=== PATIENT | female | born 1940 | race Caucasian/White ===

== ENCOUNTER → 2016-06-18 | Outpatient (CLI) | payer OTHER ==
[~2016-06-18] MED LIST: CEPH500C2 PO; CYAN100020 PO; CYAN1CAP3 PO; CZR25 PO; HYDR-5688 PO; IBUP-1428 PO; INSDGIPEN SQ; KFL500 PO; LEVO100T7 PO; LEVO50TA6 PO; LOSA1TAB PO; LPT/40 PO; MRLP17X PO; NVLGI SC; NVLGI/PEN SC; PANT40TA PO; PHEN-775 PO; PHEN-939 PO
[2016-06-18 12:01] LABS: ESTIMATED AVERAGE GLUCOSE 171 mg/dl; HA1C FLAG Normal (Normal)
[2016-06-18 12:06] LABS: BLOOD UREA NITROGEN 34 mg/dl (7-18); BUN/CREATININE RATIO 25.8 (10-20); CALCIUM 8.7 mg/dl (8.5-10.1); CARBON DIOXIDE 26 mmol/L (21-32); CHLORIDE 107 mmol/L (98-107); GLUCOSE 66 mg/dl (70-99); POTASSIUM 4.1 mmol/L (3.5-5.1); SODIUM 143 mmol/L (136-145)
[2016-06-18 12:16] LABS: ALB/GLOB RATIO 1.2 (0.9-2); ALKALINE PHOSPHATASE 64 U/L (45-117); ALT/SGPT 38 U/L (12-78); AST/SGOT 28 U/L (15-37); CHOLESTEROL 125 mg/dl (0-200); CHOLESTEROL/HDL RATIO 2.4; HDL CHOLESTEROL 53 mg/dl; LDL CHOLESTEROL CALCULATED 41 mg/dl; THYROID STIMULATING HORMONE 0.812 uIu/ml (0.300-4.500); TRIGLYCERIDES 156 mg/dl (0-150); VERY LOW DENSITY LIPOPROT CALC 31 mg/dl
== END | disposition home or self-care (01) ==
LOC: C.LAB1850 10:15
PROVIDERS: ATTEND Family Medicine
DX: E11.9 Type 2 diabetes mellitus without complications (principal)

== ENCOUNTER → 2016-12-15 | Outpatient (CLI) | payer OTHER ==
[2016-12-15 09:35] LABS: HEMATOCRIT 41.2 % (37-47); MEAN CELL VOLUME 100.5 fL (80-100); MEAN CORPUSCULAR HEMOGLOBIN 33.4 pg (25-34); MEAN CORPUSCULAR HGB CONC 33.3 g/dl (32-36); MEAN PLATELET VOLUME 12.6 fL (7.4-10.4); PLATELET COUNT 173 K/uL (130-400); WHITE BLOOD COUNT 5.99 K/uL (4.8-10.8)
[2016-12-15 09:53] LABS: ALT/SGPT 35 U/L (12-78); AST/SGOT 22 U/L (15-37); BLOOD UREA NITROGEN 22 mg/dl (7-18); BUN/CREATININE RATIO 15.9 (10-20); CALCIUM 8.8 mg/dl (8.5-10.1); CARBON DIOXIDE 30 mmol/L (21-32); CHLORIDE 106 mmol/L (98-107); GLUCOSE 104 mg/dl (70-99); POTASSIUM 4.3 mmol/L (3.5-5.1); SODIUM 140 mmol/L (136-145)
[2016-12-15 10:04] LABS: ALB/GLOB RATIO 1.2 (0.9-2); ALKALINE PHOSPHATASE 74 U/L (45-117); ESTIMATED AVERAGE GLUCOSE 146 mg/dl; HA1C FLAG Normal (Normal)
== END | disposition home or self-care (01) ==
LOC: C.LAB1850 08:18
PROVIDERS: ATTEND Family Medicine
DX: E11.9 Type 2 diabetes mellitus without complications (principal); I12.9 Hypertensive chronic kidney disease with stage 1 through stage 4 chronic kidney disease, or unspecified chronic kidney disease; E78.5 Hyperlipidemia, unspecified; N18.3 Chronic kidney disease, stage 3 (moderate)

== ENCOUNTER 2016-12-23 10:06 | Inpatient (IN) | payer OTHER ==
[~2016-12-23] VITALS: Ht 157.5 cm; Wt 90.0 kg
[~2016-12-23 10:06] MED LIST changes: -CEPH500C2 PO; -CYAN100020 PO; -CYAN1CAP3 PO; -HYDR-5688 PO; -KFL500 PO; -LEVO50TA6 PO; -LOSA1TAB PO; -MRLP17X PO; -NVLGI/PEN SC; -PHEN-775 PO; -PHEN-939 PO
[2016-12-23] MEDS ORDERED: NVLGI/PEN SC (10:42)
[2016-12-23] MEDS ORDERED: LOSA1TAB PO (10:42)
[2016-12-23] MEDS ORDERED: LEVO50TA6 PO (10:42)
[2016-12-23 11:00] LABS: COMPLETE YES; HEMATOCRIT 41.3 % (37-47); IG% 0.3 %; LYMPH % 4.4 %; LYMPH ABS # 0.67 K/uL (1.2-3.4); MEAN CELL VOLUME 100.5 fL (80-100); MEAN CORPUSCULAR HEMOGLOBIN 34.1 pg (25-34); MEAN CORPUSCULAR HGB CONC 33.9 g/dl (32-36); MEAN PLATELET VOLUME 12.7 fL (7.4-10.4); MONO % 3.9 %; NEUT % 91.4 %; PLATELET COUNT 155 K/uL (130-400); RED BLOOD COUNT 4.11 M/uL (4.2-5.4)
[2016-12-23 11:10] LABS: BUN/CREATININE RATIO 22.6 (10-20); CALCIUM 8.6 mg/dl (8.5-10.1); CREATININE 1.6 mg/dl (0.60-1.20); POTASSIUM 4.6 mmol/L (3.5-5.1)
[2016-12-23 11:13] LABS: ALB/GLOB RATIO 1.2 (0.9-2)
[2016-12-23] MEDS ORDERED: SODIUM CHLORIDE 0.9% 1000ML 1,000 ML IV STA (11:29)
[2016-12-23 11:54] LABS: PARTIAL THROMBOPLASTIN RATIO 1.4; PROTHROMBIN TIME (PATIENT) 10.7 SECONDS (9.0-12.0)
[2016-12-23 12:03] LABS: MAGNESIUM 1.9 mg/dl (1.8-2.4)
[2016-12-23 12:19] LABS: URINE APPEARANCE CLOUDY (CLEAR); URINE BILIRUBIN NEG (NEG); URINE COLOR YELLOW; URINE NITRITE POS (NEG); URINE PH 7.5 (4.5-7.5); URINE SPECIFIC GRAVITY 1.014 (1.000-1.030); UROBILINOGEN NEG (NEG); ZZUR CULT IF INDIC CLEAN CATCH YES
--- NOTE | 2016-12-23 12:20 | DIAGNOSTIC IMAGING REPORT ---
CHEST ONE VIEW PORTABLE CLINICAL HISTORY: 76 years-old Female presenting with cough, productive. TECHNIQUE: Portable upright AP view of the chest was obtained. COMPARISON: 02/15/2013. FINDINGS: Cardiomediastinal silhouette normal. Previously questioned left basilar opacity is no longer apparent. Lungs and pleural spaces clear. Osseous structures normal. Upper abdomen normal. IMPRESSION: 1. No acute cardiopulmonary disease. Electronically signed by: Baron Carcamo M.D. 12/23/2016 12:18 PM Dictated Date/Time: 12/23/2016 12:18 PM
[2016-12-23 12:31] LABS: MANUAL MICROSCOPIC REQUIRED? NO; REVIEW REQ? YES
[2016-12-23 12:50] LABS: SULFASALICYLIC ACID POS (NEG)
--- NOTE | 2016-12-23 12:54 | DIAGNOSTIC IMAGING REPORT ---
ABD/PELVIS NO IV OR ORAL CONT CLINICAL HISTORY: 76 years-old Female presenting with epigastric abd pain, urinary sxs, nausea. TECHNIQUE: Multidetector CT of the abdomen and pelvis was performed without the use of intravenous contrast. IV contrast: None. A dose lowering technique was used consistent with the principles of ALARA (as low as reasonably achievable). COMPARISON: None. CT DOSE (mGy.cm): The estimated cumulative dose is 1010.29 mGycm. FINDINGS: Tie Loader topogram: Lumbar fusion hardware noted. Lung bases: Mild multichamber enlargement of the heart. Aortic valve and coronary artery calcification. Lung bases clear. No pericardial or pleural effusion. Liver: Normal morphology. Hepatic steatosis by density. Biliary: No gross biliary ductal dilatation allowing for noncontrast technique. Normal gallbladder. Pancreas: Moderate parenchymal atrophy. Spleen: Normal. Adrenal glands: Normal. Kidneys and ureters: Nonspecific mild perinephric fat stranding. Mild prominence of the right renal collecting system and right ureter suggests mild hydroureteronephrosis. No urothelial thickening noted along the course of the right ureter. Obstructing calculus in the distal right ureter immediately proximal to the vesicoureteral junction measuring 5 mm. No left hydronephrosis. Left ureter normal. Bladder: Incompletely evaluated secondary to underdistention. Pelvic organs: Uterus and ovaries normal. Bowel: Limited diverticulosis in the proximal sigmoid colon. Normal appendix. No bowel obstruction. Peritoneal cavity: No free fluid or intraperitoneal gas. Vasculature: Atherosclerosis of the normal caliber abdominal aorta. Lymph nodes: No gross lymphadenopathy allowing for noncontrast technique. Abdominal wall: Small fat-containing umbilical hernia. Minimal infiltration overlying skin thickening along the right lower quadrant. Musculoskeletal: Calcification along the proximal hamstring tendons could suggest old injury. Degenerative changes of the sacroiliac joints. Posterior lumbar fusion hardware noted. The right S1 screw violates the anterior cortex without significant effect. Scoliosis. IMPRESSION: 1. Obstructing 5 mm calculus in the distal right ureter with mild right hydroureteronephrosis. No other renal calculi. 2. Hepatic steatosis. Electronically signed by: Baron Carcamo M.D. 12/23/2016 12:53 PM Dictated Date/Time: 12/23/2016 12:46 PM
[2016-12-23] MEDS ORDERED: CEFTRIAXONE SOD INJ 1 GM ADDVIAL IV STA (13:26)
--- NOTE | 2016-12-23 14:27 | EMERGENCY ROOM VISIT NOTE ---
History First contact with patient: 11:15 Chief Complaint: ILLNESS Stated Complaint: ILLNESS History of Present Illness The patient is a 76 year old female who presents to the Emergency Room with complaints of "not feeling well." The patient reports that she feels she has a urinary tract infection. She has had dysuria and increased frequency of urination for the past 2 days. She reports this feels like previous urinary tract infections she has had. She also reports a cough which has been productive of a yellowish mucus. She has had intermittent epigastric abdominal pain and nausea. She denies any vomiting. Her neighbor presents with the patient and reports that she was slightly disoriented this morning and needed help buttoning her shirt and getting down the stairs, which is unusual for the patient. The patient denies any confusion. She denies any fevers/chills, chest pain, shortness of breath or changes in bowel movements. She is a type II diabetic and checked her blood sugar this morning due to being "shaky," but states it was normal at that time. Review of Systems A complete 10 point review of systems was reviewed with the patient with pertinent positives and negatives as per history of present illness. All else were negative. Past Medical/Surgical History Medical Problems: (1) CHRONIC KIDNEY DISEASE, UNSPECIFIED (2) CORONARY ATHEROSCLEROSIS OF [place] CORONARY VESSEL (3) DIAB AUGIE WO COMPL, TYPE I [JUVENILE TYPE], NOT UNCNTRLD (4) HYPERLIPIDEMIA NEC/NOS (5) HYPERTENSION NOS (6) PURE HYPERCHOLESTEROLEM (7) SPINAL STENOSIS-LUMBAR (8) uti and ureter obstructive stone Social History Smoking Status: Former Smoker Drug Use: none Marital Status: Occupation Status: retired Current/Historical Medications Scheduled Atorvastatin (Lipitor), 40 MG PO DAILY Insulin Aspart (Novolog Flexpen), 1 DOSE SC TID Insulin Glargine (Lantus Solostar), 35 UNITS SQ QPM Levothyroxine Sodium (Levothyroxine Sodium), 1 TAB PO DAILY Losartan Potassium (Cozaar), 25 MG PO DAILY Physical Exam Vital Signs Date Time Temp Pulse Resp B/P (MAP) Pulse Ox O2 Delivery O2 Flow Rate FiO2 12/23/16 14:30 82 24 118/50 12/23/16 14:20 87 23 94 12/23/16 14:15 68 22 95 12/23/16 14:10 83 24 91 12/23/16 14:05 87 20 95 12/23/16 14:00 68 22 95 12/23/16 13:55 65 22 85 12/23/16 13:50 73 29 94 12/23/16 13:50 79 12/23/16 13:49 81/56 12/23/16 13:47 97/56 12/23/16 12:31 119/66 12/23/16 12:25 82 23 92 12/23/16 12:20 75 28 92 12/23/16 12:15 75 29 12/23/16 12:10 73 30 93 12/23/16 11:55 85 19 12/23/16 11:50 76 30 94 12/23/16 11:48 36.7 12/23/16 11:45 83 24 12/23/16 11:42 82 20 119/66 97 Room Air 12/23/16 11:40 76 20 95 12/23/16 11:35 84 17 12/23/16 11:30 80 25 12/23/16 10:24 79 12/23/16 10:14 81 16 131/56 94 Room Air Physical Exam VITALS: Vitals are noted on the nurse's note and reviewed by myself. Vital signs stable. GENERAL: This is a 76-year-old female, in no acute distress, nondiaphoretic, well-developed well-nourished. SKIN: The skin was without rashes. EARS: External auditory canals clear, tympanic membranes pearly duran without erythema or effusion bilaterally. EYES: Pupils equal round and reactive to light and accommodation. MOUTH: Mucous membranes slightly dry. NECK: Supple without nuchal rigidity. HEART: Regular rate and rhythm without murmurs gallops or rubs. LUNGS: Clear to auscultation bilaterally without wheezes, rales or rhonchi. ABDOMEN: Positive bowel sounds x 4. Mild epigastric tenderness. NEURO: Patient was alert and oriented to person place and time. Medical Decision & Procedures ER Provider Diagnostic Interpretation: CHEST ONE VIEW PORTABLE FINDINGS: Cardiomediastinal silhouette normal. Previously questioned left basilar opacity is no longer apparent. Lungs and pleural spaces clear. Osseous structures normal. Upper abdomen normal. IMPRESSION: 1. No acute cardiopulmonary disease. ABD/PELVIS NO IV OR ORAL CONT IMPRESSION: 1. Obstructing 5 mm calculus in the distal right ureter with mild right hydroureteronephrosis. No other renal calculi. 2. Hepatic steatosis. Laboratory Results 12/23/16 10:36 Red Blood Count 4.11, Mean Corpuscular Volume 100.5, Mean Corpuscular Hemoglobin 34.1, Mean Corpuscular Hemoglobin Concent 33.9, Mean Platelet Volume 12.7, Neutrophils (%) (Auto) 91.4, Lymphocytes (%) (Auto) 4.4, Monocytes (%) ( Auto) 3.9, Eosinophils (%) (Auto) 0.0, Basophils (%) (Auto) 0.0, Neutrophils # ( Auto) 13.99, Lymphocytes # (Auto) 0.67, Monocytes # (Auto) 0.60, Eosinophils # ( Auto) 0.00, Basophils # (Auto) 0.00 12/23/16 10:36 Test 12/23/16 10:36 12/23/16 12:00 12/23/16 12:13 White Blood Count 15.30 K/uL (4.8-10.8) Red Blood Count 4.11 M/uL (4.2-5.4) Hemoglobin 14.0 g/dL (12.0-16.0) Hematocrit 41.3 % (37-47) Mean Corpuscular Volume 100.5 fL (80-100) Mean Corpuscular Hemoglobin 34.1 pg (25-34) Mean Corpuscular Hemoglobin Concent 33.9 g/dl (32-36) Platelet Count 155 K/uL (130-400) Mean Platelet Volume 12.7 fL (7.4-10.4) Neutrophils (%) (Auto) 91.4 % Lymphocytes (%) (Auto) 4.4 % Monocytes (%) (Auto) 3.9 % Eosinophils (%) (Auto) 0.0 % Basophils (%) (Auto) 0.0 % Neutrophils # (Auto) 13.99 K/uL (1.4-6.5) Lymphocytes # (Auto) 0.67 K/uL (1.2-3.4) Monocytes # (Auto) 0.60 K/uL (0.11-0.59) Eosinophils # (Auto) 0.00 K/uL (0-0.5) Basophils # (Auto) 0.00 K/uL (0-0.2) RDW Standard Deviation 45.4 fL (36.4-46.3) RDW Coefficient of Variation 12.4 % (11.5-14.5) Immature Granulocyte % (Auto) 0.3 % Immature Granulocyte # (Auto) 0.04 K/uL (0.00-0.02) Prothrombin Time 10.7 SECONDS (9.0-12.0) Prothromb Time International Ratio 1.0 (0.9-1.1) Activated Partial Thromboplast Time 35.7 SECONDS (21.0-31.0) Partial Thromboplastin Ratio 1.4 Anion Gap 5.0 mmol/L (3-11) Est Creatinine Clear Calc Drug Dose 31.2 ml/min Estimated GFR () 35.9 Estimated GFR (Non- 31.0 BUN/Creatinine Ratio 22.6 (10-20) Calcium Level 8.6 mg/dl (8.5-10.1) Magnesium Level 1.9 mg/dl (1.8-2.4) Total Bilirubin 1.2 mg/dl (0.2-1) Aspartate Amino Transf (AST/SGOT) 21 U/L (15-37) Alanine Aminotransferase (ALT/SGPT) 44 U/L (12-78) Alkaline Phosphatase 78 U/L (45-117) Troponin I < 0.015 ng/ml (0-0.045) Total Protein 6.8 gm/dl (6.4-8.2) Albumin 3.7 gm/dl (3.4-5.0) Globulin 3.1 gm/dl (2.5-4.0) Albumin/Globulin Ratio 1.2 (0.9-2) Lipase 86 U/L (73-393) Thyroid Stimulating Hormone (TSH) 0.816 uIu/ml (0.300-4.500) Urine Color YELLOW Urine Appearance CLOUDY (CLEAR) Urine pH 7.5 (4.5-7.5) Urine Specific [place] 1.014 (1.000-1.030) Urine Protein 2+ (NEG) Urine Glucose (UA) NEG (NEG) Urine Ketones NEG (NEG) Urine Occult Blood 2+ (NEG) Urine Nitrite POS (NEG) Urine Bilirubin NEG (NEG) Urine Urobilinogen NEG (NEG) Urine Leukocyte Esterase LARGE (NEG) Urine WBC (Auto) >30 /hpf (0-5) Urine RBC (Auto) 0-4 /hpf (0-4) Urine Hyaline Casts (Auto) 1-5 /lpf (0-5) Urine Epithelial Cells (Auto) 5-10 /lpf (0-5) Urine Bacteria (Auto) 2+ (NEG) Urine Yeast (Auto) (NONE PRSENT) Lactic Acid Level 1.1 mmol/L (0.4-2.0) Medications Administered Medications (Trade) Dose Ordered Sig/Mat Route Start Time Stop Time Status Last Admin Dose Admin Sodium Chloride 1,000 ml @ 999 mls/hr Q1H1M STAT IV 12/23/16 11:29 12/23/16 12:29 DC 12/23/16 11:40 999 MLS/HR Ceftriaxone Sodium (Rocephin Inj) 1 gm NOW STAT IV 12/23/16 13:26 12/23/16 13:27 DC 12/23/16 13:26 1 GM ED Course The patient was evaluated as above. Labs were drawn and IV access was obtained. Patient was medicated with 1 L normal saline solution. Patient was reevaluated and findings were discussed. She was given 1 g Rocephin. Case was discussed with Dr. Luis of urology. He recommended admission to medicine. Case was discussed with the [facility], Dr. Araujo. They agreed to evaluate the patient for admission. Medical Decision Differential diagnosis includes UTI, kidney stone, pneumonia, cholecystitis, sepsis, diverticulitis, among others. The patient is a 76-year-old female who presents today complaining of urinary symptoms, cough and vague abdominal discomfort. Labs revealed a leukocytosis of 15.3. Creatinine is elevated at 1.6 which appears to be the patient's baseline. Labs were otherwise fairly unremarkable. Urinalysis was suggestive of infection with positive nitrites, leukocyte esterase, greater than 30 white blood cells and 2+ bacteria. This was sent for culture. A CT of the abdomen and pelvis was performed due to the patient's abdominal discomfort and did show a 5 mm obstructing stone. Given the obstructive stone and UTI, the patient will be admitted for IV antibiotics. She was given a gram of Rocephin. Case was discussed with urology and patient was admitted to the [facility] service. The patient was independently evaluated by Dr. Escalera, ED attending physician, who agreed with my assessment and treatment plan. Medication Reconcilliation Current Medication List: was personally reviewed by me Blood Pressure Screening Patient's blood pressure: Normal blood pressure Impression Primary Impression: Ureteral calculus Additional Impression: Urinary tract infection Departure Information Referrals Catarina Chand DO (PCP) Patient Instructions My [facility] Problem Qualifiers
[2016-12-23] MEDS ORDERED: ONDANSETRON INJ 2 MG/ML 2 ML VIAL IV PRN (14:30)
[2016-12-23] MEDS ORDERED: MAGNESIUM HYDROXIDE SUSP 30 ML UDC PO PRN (14:30)
[2016-12-23] MEDS ORDERED: ALUMINUM/MAGNESIUM/SIMETH (MAALOX MAX) 30 ML UDC PO PRN (14:30)
[2016-12-23] MEDS ORDERED: ZOLPIDEM TARTRATE 5 MG TAB PO PRN (14:30)
[2016-12-23] MEDS ORDERED: ACETAMINOPHEN 325 MG TAB PO PRN (14:30)
[2016-12-23] MEDS ORDERED: PANTOprazole SOD 40 MG TAB PO STA (14:45)
--- NOTE | 2016-12-23 14:46 | History and Physical ---
History & Physical Date of Service Dec 23, 2016. History & Physical uti and ureter obstructive stone, [id number]
[2016-12-23] MEDS ORDERED: POLYETHYLENE (MIRALAX) 17 GM PACK PO PRN (15:00)
--- NOTE | 2016-12-23 15:03 | EMERGENCY ROOM VISIT NOTE ---
ED Visit Note First contact with patient: 11:15 The patient was seen and examined with Clare Felix PA-C. I agree with the history, physical and findings. Please see the note for disposition and details.
[2016-12-23 15:54] VITALS: BMI 36.3
[2016-12-23] MEDS ORDERED: GLUCOSE 10 TABS/TUBE PO PRN (16:00)
[2016-12-23] MEDS ORDERED: GLUCAGON FOR INJ 1 MG VIAL SQ PRN (16:00)
[2016-12-23] MEDS ORDERED: GLUCOSE 40% GEL 15 GM TUBE PO PRN (16:00)
[2016-12-23] MEDS ORDERED: DEXTROSE 50% 50 ML SYR IV PRN (16:00)
[2016-12-23] MEDS: INSULIN ASPART 100 UNITS/ML 3 ML PEN SC SCH ×2 (17:15→22:26)
[2016-12-23] MEDS: SODIUM CHLORIDE 0.9% 1000ML 1,000 ML IV SCH (18:57)
[2016-12-23 22:00] VITALS: BP 157/71; PULSE 66; TEMP 37; O2SAT 96
[2016-12-23] MEDS ORDERED: HYDROmorphone INJ 0.5 MG/0.5 ML SYR IV PRN (22:15)
[2016-12-23] MEDS: ENOXAPARIN 40 MG/0.4 ML SYR SQ SCH (22:20)
[2016-12-23] MEDS: INSULIN GLARGINE SOLOSTAR 100 UNITS/ML 3 ML PEN SQ SCH (22:26)
[2016-12-23 22:55] VITALS: BP 154/68; PULSE 85; TEMP 37.7; O2SAT 94
[2016-12-23] MEDS ORDERED: ACETAMINOPHEN IV 650 MG in EMPTY BAG 0 ML IV PRN (23:30)
[2016-12-23] MEDS ORDERED: SODIUM CHLORIDE 0.9% 500ML 500 ML IV ONE (23:30)
--- NOTE | 2016-12-23 23:38 | Progress Note ---
Progress Note Date of Service Dec 23, 2016. Progress Note Called by RN overnight due to patient having increased pain, less responsive than earlier in the day When seen she was alert, orientated to time, place, person. Having right sided CVA tenderness. HS 1+2, no murmurs, CTAB, Abdomen soft, tender over right lower quadrant without guarding or rebound tenderness, BS +ve. Assessment: Ongoing renal colic pain, intermittently it gets more severe and likely her alertness changes with her pain. Currently she appears back to her baseline. Need to make sure she is not becoming more septic however. Plan - repeat labs, CBC, BMP lactic acid - NSS bolus 500 MLS/HR stat - CXR due to hypoxia - NPO as I suspect she may need a stent come the morning. - will call urology emergently if patient starts to become septic. Vital Signs Q2H.
[2016-12-23 23:49] LABS: HEMATOCRIT 38.7 % (37-47); IG% 0.7 %; LYMPH ABS # 0.55 K/uL (1.2-3.4); MEAN CELL VOLUME 100.8 fL (80-100); MEAN CORPUSCULAR HEMOGLOBIN 32.8 pg (25-34); MEAN PLATELET VOLUME 12.2 fL (7.4-10.4); MONO % 2.6 %; NEUT % 92.7 %; PLATELET COUNT 134 K/uL (130-400); RED BLOOD COUNT 3.84 M/uL (4.2-5.4)
[2016-12-24] VITALS (13 sets, daily range): BP systolic 96–135; BP diastolic 51–71; PULSE 58–85; TEMP 36.6–37.1; O2SAT 95–98
[2016-12-24 00:16] LABS: BUN/CREATININE RATIO 20.3 (10-20); CALCIUM 7.7 mg/dl (8.5-10.1); CREATININE 1.7 mg/dl (0.60-1.20); POTASSIUM 4.5 mmol/L (3.5-5.1)
[2016-12-24 00:17] LABS: COMPLETE YES; MEAN CORPUSCULAR HGB CONC 32.6 g/dl (32-36)
[2016-12-24] MEDS: SODIUM CHLORIDE 0.9% 1000ML 1,000 ML IV SCH ×3 (01:44→18:59)
[2016-12-24] MEDS ORDERED: NURSING DECISION MEDICATION ORDER SCH (03:00)
[2016-12-24] MEDS: INSULIN ASPART 100 UNITS/ML 3 ML PEN SC SCH ×4 (05:37→20:39)
[2016-12-24] MEDS: LEVOTHYROXINE 50 MCG TAB PO SCH (05:37)
[2016-12-24 06:07] LABS: ESTIMATED AVERAGE GLUCOSE 160 mg/dl; HA1C FLAG Normal (Normal)
--- NOTE | 2016-12-24 06:35 | DIAGNOSTIC IMAGING REPORT ---
CHEST ONE VIEW PORTABLE CLINICAL HISTORY: Increased hypoxia. COMPARISON STUDY: Chest radiograph December 23, 2016 at 12:12 PM FINDINGS: Lung volumes are normal. No consolidation is identified. There is no pneumothorax or pleural effusion. The patient is rotated. Pulmonary vascularity is normal. Cardiomediastinal silhouette is unremarkable. IMPRESSION: No acute cardiopulmonary findings. Electronically signed by: Meek Encarnacion M.D. 12/24/2016 6:34 AM Dictated Date/Time: 12/24/2016 6:33 AM
[2016-12-24 07:09] LABS: MEAN CELL VOLUME 100.6 fL (80-100); MEAN CORPUSCULAR HEMOGLOBIN 33.9 pg (25-34); MEAN CORPUSCULAR HGB CONC 33.7 g/dl (32-36); MEAN PLATELET VOLUME 12.1 fL (7.4-10.4); PLATELET COUNT 124 K/uL (130-400); RED BLOOD COUNT 3.48 M/uL (4.2-5.4); WHITE BLOOD COUNT 21.53 K/uL (4.8-10.8)
[2016-12-24] MEDS ORDERED: SODIUM CHLORIDE 0.9% 500ML 500 ML IV STA (07:32)
[2016-12-24 07:33] LABS: BUN/CREATININE RATIO 22.1 (10-20); CREATININE 1.6 mg/dl (0.60-1.20); MAGNESIUM 1.9 mg/dl (1.8-2.4); POTASSIUM 4.7 mmol/L (3.5-5.1)
[2016-12-24 07:42] LABS: BASO ABS # 0.01 K/uL (0-0.2); COMPLETE YES; IG% 0.5 %; LYMPH % 6.4 %; LYMPH ABS # 1.37 K/uL (1.2-3.4); MONO % 8.1 %
--- NOTE | 2016-12-24 08:24 | Urology Consultation ---
History General Date of Service: Dec 24, 2016. Chief Complaint: Obs Stone, Sepsis Primary Care Physician: Catarina Chand, DO Pt seen a urologist before?: No HPI - Stones Location: right, ureter Pain: right flank, constant, intermittent Patient has: + nausea, + gross hematuria, + hydronephrosis Additional Comments: Severe pain. Considerable jump in WBC this am. Denies fever. + Chills and ill feeling Laboratory Labs were reviewed and are within normal limits unless listed below. Labs are available in the chart and at [facility] Problem List Medical Problems: (1) Ureteral calculus Status: Acute (2) Urinary tract infection Status: Acute Past History diabetes Family History No fam history of stones Social History Hx Tobacco Use In Past Year?: No (quit in approx 2004) Marital status: Housing status: lives with family Occupation status: retired Immunizations History of Influenza Vaccine: Unknown Influenza Vaccine Date: Jan 30, 2009 History of Tetanus Vaccine?: Unknown History of Pneumococcal: Yes Pneumococcal Date: Apr 01, 2008 History of Hepatitis B Vaccine: Unknown History of MDRO No Allergies Coded Allergies: Levofloxacin (Verified Allergy, Unknown, ?? LEVAQUIN PER DR LAI, 09/02/10 ) Medications Home Medications: Home Meds and Scripts Medications Dose Route/Sig Max Daily Dose Days Date Category Dose Instructions Levothyroxine Sodium 50 Mcg Tab 1 Tab PO DAILY 90 12/23/16 Reported Cozaar (Losartan Potassium) 25 Mg Tab 25 Mg PO DAILY 12/23/16 Reported Novolog Flexpen (Insulin Aspart) 100 Units/Ml Inj 1 Dose SC TID 12/23/16 Reported SLIDING SCALE Lantus Solostar (Insulin Glargine) 100 Unit/Ml Inj 35 Units SQ QPM 07/10/13 Reported Lipitor (Atorvastatin) 40 Mg Tab 40 Mg PO DAILY 06/13/13 Reported Inpatient Medications: Current Inpatient Medications Medications (Trade) Dose Ordered Sig/Mat Route Start Time Stop Time Status Last Admin Dose Admin Enoxaparin Sodium (Lovenox Inj) 40 mg Q24H SQ 12/23/16 21:00 01/22/17 20:59 12/23/16 22:20 40 MG Acetaminophen (Tylenol Tab) 650 mg Q4H PRN PO 12/23/16 14:30 01/22/17 14:29 Al Hydrox/Mg Hydrox/Simethicone (Maalox Max Susp) 15 ml Q4H PRN PO 12/23/16 14:30 01/22/17 14:29 Magnesium Hydroxide (Milk Of Magnesia Susp) 30 ml Q6H PRN PO 12/23/16 14:30 01/22/17 14:29 Polyethylene (Miralax Powder Packet) 17 gm DAILY PRN PO 12/23/16 15:00 01/22/17 14:59 Zolpidem Tartrate (Ambien Tab) 5 mg HSZ PRN PO 12/23/16 14:30 01/22/17 14:29 Ondansetron HCl (Zofran Inj) 4 mg Q6H PRN IV 12/23/16 14:30 01/22/17 14:29 12/23/16 22:17 4 MG Ceftriaxone Sodium 1 gm/ Dextrose 50 ml @ 100 mls/hr Q24H IV 12/24/16 14:00 01/03/17 13:59 Atorvastatin Calcium (Lipitor Tab) 40 mg DAILY PO 12/24/16 09:00 01/23/17 08:59 Insulin Glargine (Lantus Solostar Pen) 35 units QPM SQ 12/23/16 21:00 01/22/17 20:59 12/23/16 22:26 35 UNITS Levothyroxine Sodium (Synthroid Tab) 50 mcg DAILYBB PO 12/24/16 06:00 01/23/17 06:59 Sodium Chloride 1,000 ml @ 125 mls/hr Q8H IV 12/23/16 14:45 01/22/17 14:44 12/24/16 01:44 125 MLS/HR Pantoprazole Sodium (Protonix Tab) 40 mg QAM PO 12/24/16 09:00 01/23/17 08:59 Glucose (Glucose 40% Gel) 15-30 GRAMS 15 GRAMS... UD PRN PO 12/23/16 16:00 01/22/17 15:59 Glucose (Glucose Chew Tab) 4-8 Tablets 4 Tabl... UD PRN PO 12/23/16 16:00 01/22/17 15:59 Dextrose (Dextrose 50% 50ML Syringe) 25-50ML OF 50% DW IV FOR... UD PRN IV 12/23/16 16:00 01/22/17 15:59 Glucagon (Glucagon Inj) 1 mg UD PRN SQ 12/23/16 16:00 01/22/17 15:59 Hydromorphone HCl (Dilaudid Inj) 0.25 mg Q1H PRN IV 12/23/16 22:15 01/06/17 22:14 Acetaminophen 650 mg/Empty Bag 65 ml @ 260 mls/hr Q6H PRN IV 12/23/16 23:30 01/22/17 23:29 Insulin Aspart (novoLOG ASPART) SLIDING SCALE G... Q6 SC 12/24/16 06:00 01/23/17 05:59 Gentamicin Sulfate 160 mg/ Dextrose 104 ml @ 100 mls/hr TODAY@0900 IV 12/24/16 09:00 12/24/16 18:00 Review of Systems Review of Systems All Other Systems: Reviewed and Negative Additional Comments: See HPI for pert positive and negatives. All reviewed. Physical Exam Vital Signs: Vital Signs Past 12 Hours Date Time Temp Pulse Resp B/P (MAP) Pulse Ox O2 Delivery O2 Flow Rate FiO2 12/24/16 07:07 36.6 62 18 96/66 (76) 97 Room Air 12/24/16 05:00 36.7 67 16 103/59 (74) 97 Oxymask 2.0 12/24/16 03:07 36.6 69 18 107/71 (83) 97 Room Air 12/24/16 00:56 37.1 85 16 109/68 (82) 97 Oxymask 2.0 12/24/16 00:30 107/69 102/63 111/57 114/58 12/23/16 23:15 Mask 2.0 12/23/16 22:55 37.7 85 36 154/68 (96) 94 Mask 2.0 12/23/16 22:00 37.0 66 18 157/71 (99) 96 Room Air Physical Exam: General Appearance: WD/WN, no apparent distress Eyes: bilateral eyes normal inspection ENT: normal ENT inspection Neck: supple, no adenopathy Respiratory/Chest: no respiratory distress, no accessory muscle use Cardiovascular: regular rate, rhythm Gastrointestinal: Abdomen: normal abdomen Bladder: tender Renal: cva tenderness Extremities: normal range of motion, non-tender Neurologic/Psychiatric: silviculturist II-XII nml as tested, no motor/sensory deficits Skin: normal color, warm/dry Lymphatic: no adenopathy Assessment & Plan Assessment & Plan Imaging: CT Treatment Planned: cystoscopy w/ stent 1 Obst Right Distal Stone 2 [place] 3 UTI 4 Sepsis/SIRS Will plan for urgent stent placement after review and interpretation of CT findings and lab work. Discussed with patient who signed consent. Will go to OR for Stent, possible intervention. Monitor closely for sepsis progression and worsening issues.
[2016-12-24] MEDS ORDERED: DEXAMETHASONE SOD INJ 4 MG/ML VIAL ONE (08:26)
[2016-12-24] MEDS ORDERED: LIDOCAINE HCL 2% 2 ML VIAL (20MG/ML) ONE (08:26)
[2016-12-24] MEDS ORDERED: FENTANYL CITRATE INJ 50 MCG/1 ML 2 ML VIAL ONE (08:26)
[2016-12-24] MEDS ORDERED: PROPOFOL IV EMULSION 10 MG/ML 20 ML VIAL IV ONE (08:26)
[2016-12-24] MEDS ORDERED: MIDAZOLAM HCL 1 MG/ML 2ML VIAL ONE (08:26)
[2016-12-24] MEDS ORDERED: ONDANSETRON INJ 2 MG/ML 2 ML VIAL ONE (08:26)
--- NOTE | 2016-12-24 08:28 | HISTORY & PHYSICAL EXAMINATION ---
DATE OF ADMISSION: 12/23/2016 This is a level 3 inpatient admissions and 35 minutes. CHIEF COMPLAINT: Abdominal pain, sick. HISTORY OF PRESENT ILLNESS: The patient is a 76-year-old white female with a significant past medical history of chronic kidney disease, diabetic type 2, dyslipidemia, spinal stenosis, osteoarthritis, renal disease, GERD, comes to the hospital Emergency Department because of the above chief complaint. The patient reported she has been feeling sick for couple days. Not feeling well, she feels like she has urinary tract infection. In recent 2 days, the dysuria and frequency is getting worse. She reports she has some cough but is not productive. Has 3-4 weeks. Denied chest pain, palpitations. She reported has some intermittent epigastric pain associated with nauseation. However, she denied any vomiting. Denied diarrhea or constipation. Denied status changes, denied fever and chills. Denied facial droop, slurry speeches or local weakness. Denies skin rashes. In the Emergency Room, she was found to have UTI and kidney stone. PAST MEDICAL HISTORY: Like I mentioned in the above, chronic kidney disease, CAD, diabetic, dyslipidemia, hypertension, and spinal stenosis. SOCIAL HISTORY: Denied alcohol abuse disorder, denied tobacco abuse disorder, denied illicit drug abuse, history of smoking but quit many years ago. REVIEW OF SYSTEMS: Please see HPI, otherwise 14 points organ system review were negative. MEDICATIONS: 1. Taking at home which include Lipitor 40 mg p.o. daily. 2. FlexPen. 3. Insulin glargine 35 units subQ q.a.m. 4. Levothyroxine 50 mcg p.o. daily. 5. Losartan 25 mg p.o. daily. PHYSICAL EXAMINATION: VITAL SIGNS: Temperature 36.7, heart rate at 70s, respiratory rate 19, blood pressure 118/50s, and pulse ox was 94% in room air. GENERAL: The patient is a white female, awake, alert and orientated, conversational, follows all commands. HEAD: Normocephalic. EYES: Pupils equal, round responds to light. EARS: Ear was normal. NOSE: Normal. NECK: Supple. Thyroid no enlargement. Trachea midline. HEART: Regular rhythm. S1, S2, possible has skipped heart beating but no obvious irregularly irregular. ABDOMEN: Soft, nontender. Bowel sound was positive. GENITOURINARY AND RECTAL: Deferred. EXTREMITIES: Right CVA, mild tender. NEUROLOGICAL EVALUATION: Cranial nerve through XII was intact. There were no local deficits. SKIN: Has no rashes. LABORATORY STUDIES: WBC 15, hemoglobin 14, platelet 155. PT/INR was 10/1. Sodium 140, potassium 4.6, chloride 109, bicarbonate 27. BUN is 36, creatinine 1.6. Random blood glucose 78. Calcium 8.6. Total bilirubin 1.2. Liver function test was within normal limits. IMAGING STUDIES: Included chest x-ray which shows no evidence of pulmonary disease. Abdominal CT studies which shows obstructing 5 mm stone in the distal right ureter with mild right hydronephrosis. Hepatic stenosis. ASSESSMENT AND PLAN: A 76-year-old white female with the conditions below: 1. Urinary tract infection. 2. Right distal ureter stone with mild hydronephrosis. 3. History of hypertension. 4. Dyslipidemia. 5. Insulin-dependent diabetic. 6. Hypothyroidism. The patient has urinary tract infection associated with distal ureter stone which caused blockages associated with mild renal nephrosis. I agreed to admit the patient. We will continue losartan as IV antibiotics. Has send blood culture and urine culture. We will follow up labs tomorrow to see if patient improves or not. Has request urology consultation. For dyslipidemia, we will continue atorvastatin. For insulin-dependent diabetic, we will continue insulin glargine. We will start aspart sliding scales. For hypothyroidism, we will continue the levothyroxine 50 mcg p.o. daily, and for hypertension, we will continue losartan potassium. Deep venous thrombosis prophylaxis is covered by subQ heparin. GI prophylaxis will be Protonix.
[2016-12-24] MEDS ORDERED: FLUMAZENIL 0.1 MG/1 ML 10 ML VIAL IV PRN (08:30)
[2016-12-24] MEDS ORDERED: FENTANYL CITRATE INJ 50 MCG/1 ML 2 ML VIAL IV PRN (08:30)
[2016-12-24] MEDS ORDERED: LABETALOL HCL IV 5 MG/ML 20ML IV PRN (08:30)
[2016-12-24] MEDS ORDERED: HYDROmorphone INJ 2 MG/ML SYR/VIAL IV PRN (08:30)
[2016-12-24] MEDS ORDERED: PHENYLEPHRINE 100MCG/ML 5ML SYR IV PRN (08:30)
[2016-12-24] MEDS ORDERED: ATROPINE SULFATE 0.1 MG/ML 5ML SYR IV PRN (08:30)
[2016-12-24] MEDS ORDERED: NALOXONE HCL 0.4 MG/1 ML VIAL/CARP IV PRN (08:30)
[2016-12-24] MEDS ORDERED: EpHEDrine SULFATE INJ 50 MG/ML AMP IV PRN (08:30)
[2016-12-24] MEDS ORDERED: ONDANSETRON INJ 2 MG/ML 2 ML VIAL IV PRN (08:30)
[2016-12-24] MEDS ORDERED: MEPERIDINE HCL 25 MG/ML CARP IV PRN (08:30)
[2016-12-24] MEDS ORDERED: LOSARTAN POTASSIUM 25 MG TAB PO SCH (09:00)
[2016-12-24] MEDS ORDERED: GENTAMICIN INJ 160 MG in DEXTROSE 5% 100ML 100 ML IV SCH (09:00)
[2016-12-24] MEDS ORDERED: EpHEDrine SULFATE 50MG/5ML SYR ONE (09:02)
[2016-12-24] MEDS ORDERED: CONRAY 30% 150ML BOTTLE ONE (09:03)
--- NOTE | 2016-12-24 09:20 | [facility] Operative Report ---
Operative Report Operative Date Dec 24, 2016. Pre-Operative Diagnosis Right Obstructing Ureteral Stone Post-Operative Diagnosis Right Obstructing Ureteral Stone Procedure(s) Performed Cystoscopy and Right Ureteral Stent Insertion Surgeon Dr. Leonel Bingham Project Manager Retail Surgeon(s) None Estimated Blood Loss None Findings Considerable cystitis throughout bladder. Hydronephrosis of right kidney with obstructing stone. Fluids See Anes Report Specimens Cath Urine for rotuine C&S collected 09. Drains 5x24 Double J Stent Right Anesthesia MAC Complication(s) None Disposition Recovery Room / PACU Indications Obstructing stone with renal colic and elevated white count in elderly patient with multiple comorbidities. Risks and benefits discussed at length. Description of Procedure Patient was consented and brought back to the operating room. Patient was placed under anesthesia and into the dorsal lithotomy position. A time out was completed. A 30degree Cystoscope was placed into the bladder and the entire bladder was examined. The UO's were identified. Grade 3 cystocele with considerable irritation and cystitis throughout bladder. The Right UO was cannulized with a catheter, an aspiration of urine was completed, and a retrograde pyelogram was completed. A wire was then placed. With the wire in place, a 6 x [24] cm Double J stent was placed. It was confirmed with fluoroscopy. With the stent in place, the bladder was emptied. The scope was removed. The patient was cleaned, aroused from anesthesia, and transferred to the pacu in stable condition having tolerated the procedure well with no complications. I was present and participated in all aspects of the procedure. The patient will be monitored in the PACU until transferred. Patient given Gentamycin for additional Gram Negative coverage. Patient growing Gram-Neg Rods in urine. Recommend addition of psuedomonas coverage with advancement of Cephalosporin to Cefipime. I attest to the content of the Intraoperative Record and any orders documented therein. Any exceptions are noted below.
--- NOTE | 2016-12-24 10:14 | Anesthesiology Progress Note ---
Anesthesia Post Op Note Date & Time Dec 24, 2016 at 10:14 Vital Signs Pain Intensity: 0 Vital Signs Past 12 Hours Date Time Temp Pulse Resp B/P (MAP) Pulse Ox O2 Delivery O2 Flow Rate FiO2 12/24/16 09:50 36.6 67 16 106/54 96 Room Air 12/24/16 09:40 67 16 109/58 97 Oxymask 10 12/24/16 09:30 67 16 111/57 100 Oxymask 10 12/24/16 09:22 36.5 67 16 113/53 100 Oxymask 10 12/24/16 08:30 36.5 63 16 120/50 (73) 98 Room Air 12/24/16 07:07 36.6 62 18 96/66 (76) 97 Room Air 12/24/16 05:00 36.7 67 16 103/59 (74) 97 Oxymask 2.0 12/24/16 03:07 36.6 69 18 107/71 (83) 97 Room Air 12/24/16 00:56 37.1 85 16 109/68 (82) 97 Oxymask 2.0 12/24/16 00:30 107/69 102/63 111/57 114/58 12/23/16 23:15 Mask 2.0 12/23/16 22:55 37.7 85 36 154/68 (96) 94 Mask 2.0 Notes Mental Status: alert / awake / arousable, participated in evaluation Pt Amnestic to Procedure: Yes Nausea / Vomiting: adequately controlled Pain: adequately controlled Airway Patency, RR, SpO2: stable & adequate BP & HR: stable & adequate Hydration State: stable & adequate Anesthetic Complications: no major complications apparent
--- NOTE | 2016-12-24 12:08 | DIAGNOSTIC IMAGING REPORT ---
FLUOROSCOPIC IMAGES FROM RIGHT RETROGRADE EXAM CLINICAL HISTORY: Cystoscopy. Stent placement. COMPARISON STUDY: CT of the abdomen and pelvis December 23, 2016. Fluoroscopy time: 22 seconds. FINDINGS: 8 fluoroscopic images from right retrograde exam demonstrate cannulation of the right ureter with placement of a right ureteral stent. There is no hydronephrosis. IMPRESSION: Fluoroscopic images from right retrograde exam with ureteral stent insertion. Electronically signed by: Meek Encarnacion M.D. 12/24/2016 12:06 PM Dictated Date/Time: 12/24/2016 12:03 PM
[2016-12-24] MEDS: ATORVASTATIN 40 MG TAB PO SCH (13:19)
[2016-12-24] MEDS: PANTOprazole SOD 40 MG TAB PO SCH (13:19)
[2016-12-24] MEDS ORDERED: CEFTRIAXONE SOD INJ 1 GM in DEXTROSE 5% ADD-VANTAGE 50ML 50 ML IV SCH (14:00)
[2016-12-24] MEDS ORDERED: NURSING VERBAL MED ORDER ONE (15:30)
[2016-12-24] MEDS: INSULIN GLARGINE SOLOSTAR 100 UNITS/ML 3 ML PEN SQ SCH (20:39)
[2016-12-24] MEDS: ENOXAPARIN 40 MG/0.4 ML SYR SQ SCH (21:00)
[2016-12-24] MEDS ORDERED: CEFEPIME IV 2,000 MG in DEXTROSE 5% 100ML 100 ML IV SCH (21:00)
--- NOTE | 2016-12-24 22:01 | Progress Note ---
Subjective Date of Service: Dec 24, 2016. Subjective Pt evaluation today including: conversation w/ patient, physical exam, chart review, lab review, review of studies (CT abd/pelvis, cysto/retrograde ), review of inpatient medication list Pain: mild right flank pain PO Intake: tolerating diet Voiding: no voiding problems I saw the patient today post-op from her right stent placement. Tolerating diet, walking the hallways, pain markedly improved, and "I feel the best I have in 2 weeks" Anxious to go home Mild dysuria Problem List Medical Problems: (1) Ureteral calculus Status: Acute (2) Urinary tract infection Status: Acute Review of Systems Constitutional: No fever, No chills Respiratory: No shortness of breath, No dyspnea on exertion Cardiac: No chest pain Abdomen: + see HPI, No nausea, No vomiting Objective Vital Signs Date Time Temp Pulse Resp B/P (MAP) Pulse Ox O2 Delivery O2 Flow Rate FiO2 12/24/16 15:35 97 Room Air 12/24/16 15:21 36.7 61 18 135/64 (87) 97 Room Air 12/24/16 13:30 36.7 71 18 101/63 (76) 96 Room Air 12/24/16 12:36 36.9 61 18 102/64 (77) 95 Room Air 12/24/16 11:30 36.6 64 18 118/58 (78) 96 Room Air 12/24/16 10:56 36.9 58 18 99/52 (68) 98 Room Air 12/24/16 10:30 36.6 61 16 102/51 (68) 97 Room Air 12/24/16 10:15 36.6 61 16 111/60 96 Room Air 12/24/16 10:00 36.6 65 16 105/59 96 Room Air 12/24/16 09:50 36.6 67 16 106/54 96 Room Air 12/24/16 09:40 67 16 109/58 97 Oxymask 10 12/24/16 09:30 67 16 111/57 100 Oxymask 10 12/24/16 09:22 36.5 67 16 113/53 100 Oxymask 10 12/24/16 08:30 36.5 63 16 120/50 (73) 98 Room Air 12/24/16 07:45 Room Air 12/24/16 07:45 97 Room Air 12/24/16 07:07 36.6 62 18 96/66 (76) 97 Room Air 12/24/16 05:00 36.7 67 16 103/59 (74) 97 Oxymask 2.0 12/24/16 03:07 36.6 69 18 107/71 (83) 97 Room Air 12/24/16 00:56 37.1 85 16 109/68 (82) 97 Oxymask 2.0 12/24/16 00:30 107/69 102/63 111/57 114/58 12/23/16 23:15 Mask 2.0 12/23/16 22:55 37.7 85 36 154/68 (96) 94 Mask 2.0 12/23/16 22:00 37.0 66 18 157/71 (99) 96 Room Air Physical Exam General Appearance: no apparent distress, + obese ENT: pharynx normal Neck: no JVD Respiratory/Chest: lungs clear, no respiratory distress, no accessory muscle use Cardiovascular: regular rate, rhythm, no gallop, no murmur Abdomen: normal bowel sounds, soft, no organomegaly, + tenderness (right flank only) Extremities: no pedal edema Neurologic/Psychiatric: alert, oriented x 3 Laboratory Results Last 24 Hours Test 12/23/16 22:38 12/23/16 23:35 12/23/16 23:38 12/24/16 05:34 Bedside Glucose 180 mg/dl 117 mg/dl White Blood Count 13.80 K/uL Red Blood Count 3.84 M/uL Hemoglobin 12.6 g/dL Hematocrit 38.7 % Mean Corpuscular Volume 100.8 fL Mean Corpuscular Hemoglobin 32.8 pg Mean Corpuscular Hemoglobin Concent 32.6 g/dl Platelet Count 134 K/uL Mean Platelet Volume 12.2 fL Neutrophils (%) (Auto) 92.7 % Lymphocytes (%) (Auto) 4.0 % Monocytes (%) (Auto) 2.6 % Eosinophils (%) (Auto) 0.0 % Basophils (%) (Auto) 0.0 % Neutrophils # (Auto) 12.80 K/uL Lymphocytes # (Auto) 0.55 K/uL Monocytes # (Auto) 0.36 K/uL Eosinophils # (Auto) 0.00 K/uL Basophils # (Auto) 0.00 K/uL RDW Standard Deviation 47.2 fL RDW Coefficient of Variation 12.8 % Immature Granulocyte % (Auto) 0.7 % Immature Granulocyte # (Auto) 0.09 K/uL Sodium Level 142 mmol/L Potassium Level 4.5 mmol/L Chloride Level 111 mmol/L Carbon Dioxide Level 25 mmol/L Anion Gap 6.0 mmol/L Blood Urea Nitrogen 35 mg/dl Creatinine 1.70 mg/dl Est Creatinine Clear Calc Drug Dose 29.4 ml/min Estimated GFR () 33.4 Estimated GFR (Non- 28.8 BUN/Creatinine Ratio 20.3 Random Glucose 170 mg/dl Calcium Level 7.7 mg/dl Lactic Acid Level 1.1 mmol/L Test 12/24/16 06:44 12/24/16 08:07 12/24/16 09:31 12/24/16 11:52 White Blood Count 21.53 K/uL Red Blood Count 3.48 M/uL Hemoglobin 11.8 g/dL Hematocrit 35.0 % Mean Corpuscular Volume 100.6 fL Mean Corpuscular Hemoglobin 33.9 pg Mean Corpuscular Hemoglobin Concent 33.7 g/dl Platelet Count 124 K/uL Mean Platelet Volume 12.1 fL Neutrophils (%) (Auto) 85.0 % Lymphocytes (%) (Auto) 6.4 % Monocytes (%) (Auto) 8.1 % Eosinophils (%) (Auto) 0.0 % Basophils (%) (Auto) 0.0 % Neutrophils # (Auto) 18.30 K/uL Lymphocytes # (Auto) 1.37 K/uL Monocytes # (Auto) 1.75 K/uL Eosinophils # (Auto) 0.00 K/uL Basophils # (Auto) 0.01 K/uL RDW Standard Deviation 47.4 fL RDW Coefficient of Variation 12.9 % Immature Granulocyte % (Auto) 0.5 % Immature Granulocyte # (Auto) 0.10 K/uL Macrocytosis PRESENT Sodium Level 139 mmol/L Potassium Level 4.7 mmol/L Chloride Level 111 mmol/L Carbon Dioxide Level 22 mmol/L Anion Gap 6.0 mmol/L Blood Urea Nitrogen 35 mg/dl Creatinine 1.60 mg/dl Est Creatinine Clear Calc Drug Dose 31.2 ml/min Estimated GFR () 35.9 Estimated GFR (Non- 31.0 BUN/Creatinine Ratio 22.1 Random Glucose 127 mg/dl Calcium Level 8.0 mg/dl Magnesium Level 1.9 mg/dl Bedside Glucose 127 mg/dl 135 mg/dl 124 mg/dl Test 12/24/16 20:19 Bedside Glucose 223 mg/dl Assessment and Plan 76yo female - 1. sepsis 2nd to obstructing kidney stone & UTI - improved. CBC am. 2. right-sided 5mm kidney stone - s/p stent placement today. Markedly improved. Plan for stone removal & stent retrieval in 7-10 days post-discharge. Appreciate urological assistance. 3. UTI - GNR - can d/c gent, cont cefepime, await final culture. 4. hypothyroidism - synthroid 5. macrocytosis - b12/folate in am 6. FEN - advance diet to regular/T2DM, BMP am, lytes stable, cont IVF 7. CKD stage 3 - Creatinine at baseline. 8. T2DM - control adequate w/ novolog & lantus. anticipate d/c home tomorrow if final urine cx has resulted Continued [facility] stay due to: multiple IV medications needed Discharge planning: home
[2016-12-25 03:28] VITALS: BP 126/72; PULSE 68; TEMP 36.9; O2SAT 95
[2016-12-25] MEDS: LEVOTHYROXINE 50 MCG TAB PO SCH (05:40)
[2016-12-25 07:32] LABS: BASO % 0.1 %; BASO ABS # 0.01 K/uL (0-0.2); COMPLETE YES; EOS % 0.8 %; HEMATOCRIT 37.3 % (37-47); IG% 0.7 %; LYMPH % 13.3 %; MEAN CELL VOLUME 101.6 fL (80-100); MEAN CORPUSCULAR HEMOGLOBIN 33.2 pg (25-34); MEAN CORPUSCULAR HGB CONC 32.7 g/dl (32-36); MEAN PLATELET VOLUME 12.3 fL (7.4-10.4); MONO % 8.8 %; NEUT % 76.3 %; PLATELET COUNT 141 K/uL (130-400); RED BLOOD COUNT 3.67 M/uL (4.2-5.4); WHITE BLOOD COUNT 13.54 K/uL (4.8-10.8)
[2016-12-25 07:47] VITALS: BP 125/78; PULSE 65; TEMP 36.9; O2SAT 91
[2016-12-25] MEDS: INSULIN ASPART 100 UNITS/ML 3 ML PEN SC SCH ×2 (08:00→12:00)
[2016-12-25 08:15] LABS: BUN/CREATININE RATIO 15.5 (10-20); CALCIUM 8.5 mg/dl (8.5-10.1); CREATININE 1.7 mg/dl (0.60-1.20); POTASSIUM 3.8 mmol/L (3.5-5.1)
[2016-12-25] MEDS: ATORVASTATIN 40 MG TAB PO SCH (08:39)
[2016-12-25] MEDS: PANTOprazole SOD 40 MG TAB PO SCH (08:39)
[2016-12-25] MEDS: SODIUM CHLORIDE 0.9% 1000ML 1,000 ML IV SCH (08:43)
--- NOTE | 2016-12-25 09:37 | Progress Note ---
Subjective Date of Service: Dec 25, 2016. (Avani Zamora CRNP) Subjective Pt evaluation today including: conversation w/ patient, physical exam, chart review, lab review Voiding: no voiding problems 76 year old female s/p right ureteral stent for right ureteral stone. Pt reports she is feeling much better. Denies irritation from the stent. Tolerating her diet well. Preliminary clean catch urine is showing pansensitive EColi. She remains Afebrile. White count is trending downward nicely. Creatinine remains elevated. (Avani Zamora CRNP) Problem List Medical Problems: (1) Ureteral calculus Status: Acute (2) Urinary tract infection Status: Acute (Avani Zamora CRNP) Review of Systems Constitutional: No fever, No chills Eyes: No worsening of vision ENT: No hearing loss Respiratory: No cough, No shortness of breath Cardiac: No chest pain Abdomen: No pain, No nausea, No vomiting, No constipation Female : No dysuria, No urinary frequency Neurologic: No weakness Psychiatric: No depression symptoms Heme: No abnormal bleeding/bruising Endo: No fatigue (Avani Zamora CRNP) Objective Vital Signs Date Time Temp Pulse Resp B/P (MAP) Pulse Ox O2 Delivery O2 Flow Rate FiO2 12/25/16 07:47 36.9 65 18 125/78 (94) 91 Room Air 12/25/16 07:10 Room Air 12/25/16 03:28 36.9 68 18 126/72 (90) 95 Room Air 12/24/16 23:06 36.6 68 18 117/71 (86) 97 Room Air 12/24/16 15:35 97 Room Air 12/24/16 15:21 36.7 61 18 135/64 (87) 97 Room Air 12/24/16 13:30 36.7 71 18 101/63 (76) 96 Room Air 12/24/16 12:36 36.9 61 18 102/64 (77) 95 Room Air 12/24/16 11:30 36.6 64 18 118/58 (78) 96 Room Air 12/24/16 10:56 36.9 58 18 99/52 (68) 98 Room Air 12/24/16 10:30 36.6 61 16 102/51 (68) 97 Room Air 12/24/16 10:15 36.6 61 16 111/60 96 Room Air 12/24/16 10:00 36.6 65 16 105/59 96 Room Air 12/24/16 09:50 36.6 67 16 106/54 96 Room Air 12/24/16 09:40 67 16 109/58 97 Oxymask 10 12/24/16 09:30 67 16 111/57 100 Oxymask 10 (Avani Zamora CRNP) Physical Exam General Appearance: WD/WN, no apparent distress ENT: hearing grossly normal Neck: no JVD Respiratory/Chest: no respiratory distress, no accessory muscle use Extremities: normal range of motion, no calf tenderness Neurologic/Psychiatric: alert, normal mood/affect, oriented x 3 Skin: normal color, warm/dry, no rash (Avani Zamora CRNP) Laboratory Results Last 24 Hours Test 12/24/16 09:31 12/24/16 11:52 12/24/16 17:04 12/24/16 20:19 Bedside Glucose 135 mg/dl 124 mg/dl 156 mg/dl 223 mg/dl Test 12/25/16 07:03 12/25/16 08:00 White Blood Count 13.54 K/uL Red Blood Count 3.67 M/uL Hemoglobin 12.2 g/dL Hematocrit 37.3 % Mean Corpuscular Volume 101.6 fL Mean Corpuscular Hemoglobin 33.2 pg Mean Corpuscular Hemoglobin Concent 32.7 g/dl Platelet Count 141 K/uL Mean Platelet Volume 12.3 fL Neutrophils (%) (Auto) 76.3 % Lymphocytes (%) (Auto) 13.3 % Monocytes (%) (Auto) 8.8 % Eosinophils (%) (Auto) 0.8 % Basophils (%) (Auto) 0.1 % Neutrophils # (Auto) 10.34 K/uL Lymphocytes # (Auto) 1.80 K/uL Monocytes # (Auto) 1.19 K/uL Eosinophils # (Auto) 0.11 K/uL Basophils # (Auto) 0.01 K/uL RDW Standard Deviation 48.2 fL RDW Coefficient of Variation 12.9 % Immature Granulocyte % (Auto) 0.7 % Immature Granulocyte # (Auto) 0.09 K/uL Sodium Level 142 mmol/L Potassium Level 3.8 mmol/L Chloride Level 112 mmol/L Carbon Dioxide Level 26 mmol/L Anion Gap 4.0 mmol/L Blood Urea Nitrogen 26 mg/dl Creatinine 1.70 mg/dl Est Creatinine Clear Calc Drug Dose 29.4 ml/min Estimated GFR () 33.4 Estimated GFR (Non- 28.8 BUN/Creatinine Ratio 15.5 Random Glucose 58 mg/dl Calcium Level 8.5 mg/dl Vitamin B12 Level 339 pg/mL Folate 13.65 ng/mL Bedside Glucose 58 mg/dl (Avani Zamora CRNP) Assessment and Plan Right ureteral stone s/p right ureteral stent Pt is doing much better. Will plan for cystoscopy with laser litho and stent exchange on Jan 05.. Our office has scheduled follow up appt for pt with Dr. Bingham. In our office ([address]) on WednesdayDec 28 at 1:20 pm. Prelim urine culture showing pansensitive EColi- recommend treating with 10-14 days of oral antibiotic. Okay to d/c from urology standpoint. Thanks for allowing us to participate in the care of this patient. Continued [facility] stay due to: multiple IV medications needed Discharge planning: home (Avani Zamora CRNP)
--- NOTE | 2016-12-25 09:39 | Consultant Recommendations ---
Rolled Materials Worker Recommendations Date of Service Dec 25, 2016. Rolled Materials Worker Recommendations Please follow up in Urology office with Dr. Bingham on WednesdayDecember 28 at 1:20 pm. His office is located on [address] [place] [address]. Your surgery is tentatively scheduled for Jan 05 at [facility].
[2016-12-25 10:00] VITALS: Ht 157.5 cm; Wt 90.0 kg
[2016-12-25] MEDS ORDERED: MRLP17X PO (10:40)
[2016-12-25] MEDS ORDERED: KFL500 PO (10:40)
[2016-12-25] MEDS ORDERED: PHEN-939 PO (10:40)
[2016-12-25] MEDS ORDERED: BISACODYL 5 MG TABEC PO ONE (10:45)
--- NOTE | 2016-12-25 10:50 | Discharge Instructions ---
Discharge Instructions Date of Service Dec 25, 2016. Admission Reason for Admission: UTI and kidney stone Discharge Discharge Diagnosis / Problem: e. coli UTI; right-sided kidney stone with placement of stent Discharge Goals Goal(s): Learn about illness, Diagnostic testing, Therapeutic intervention Activity Recommendations Activity Limitations: as noted below Until your stent is removed recommend "light duty". Avoid heavy lifting over 15-20 pounds, and avoid heavy exertional activities ( indoor and outdoor). . Instructions / Follow-Up Instructions / Follow-Up From Dr. Miranda - 1. Kidney stone with stent - * the stent in the right ureter can cause some discomfort * OK to use tylenol 1000mg up to 3 times a day as needed for pain * would avoid aspirin, motrin, naprosyn, and anti-inflammatories, however 2. UTI (urinary tract infection) - * please take keflex (cephalexin) 500mg twice daily for 10 days - prescription sent to [facility] * begin this TONIGHT on 12/25/16 * recommend taking an ftwl-cwx-tuscoho probiotic supplement or eating yogurt daily to help prevent diarrhea from the keflex * may take pyridium 100mg every 8 hours as needed for burning on urination/pain * note that the pyridium may make your urine, tears, etc turn an orange color * this is a normal side effect 3. Please HOLD your losartan blood pressure medication at this time. 4. Follow-up - * see Dr. Bingham at [facility] on 12/28/16, at 1:20pm as scheduled * see your family doctor - Dr. Chand - within 1 week 5. Diabetes - resume your normal insulin regimen as previous. Check your blood sugars before meals and at bedtime. 6. Constipation - * please take miralax 1 serving daily for prevention/treatment of constipation * you can also add on dulcolax or senna (senakot) to the miralax if needed 7. Your vitamin B12 level was on the low end of normal. Please take an over- the-counter vitamin B12 supplement - 1000mcg - for about 6 months. 8. Return to [facility] if - * you have worsening right-sided abdominal pain, back pain, flank pain * you develop nausea or vomiting or inability to keep down food/beverage * you develop fever over 100.4 degrees * you develop inability to move your bowels despite use of miralax and other constipation aids * any other concerns Current Hospital Diet Patient's current hospital diet: Diabetes Type 2 Diet Discharge Diet Recommended Diet: Diabetes Type 2 Diet Procedures Procedures Performed: 1. CAT scan of abdomen and pelvis showing a right-sided 5mm kidney stone. 2. Cystoscopy, Right Retrograde Pyelogram and Right Ureteral Stent Insertion. Pending Studies Studies pending at discharge: yes List of pending studies: blood cultures urine culture Laboratory Results Hemoglobin A1c Test 12/23/16 10:36 Range/Units Estimated Average Glucose 160 mg/dl Hemoglobin A1c 7.2 H 4.5-5.6 % Medical Emergencies . Who to Call and When: Medical Emergencies: If at any time you feel your situation is an emergency, please call 911 immediately. . Non-Emergent Contact Non-Emergency issues call your: Urologist Call Non-Emergent contact if: temperature is above 100.5, your pain is not controlled, your pain is worsening, your pain is concerning you, you have any medication questions . . "Provider Documentation" section prepared by Arvin Miranda. . Technical Proposal Writer Recommendations Technical Proposal Writer Recommendations: Please follow up in Urology office with Dr. Bingham on WednesdayDecember 28 at 1:20 pm. His office is located on [address] [place] [address]. Your surgery is tentatively scheduled for Jan 05 at [facility]. VTE Core Measure Inpt VTE Proph given/why not?: Enoxaparin (Lovenox)SQ
[2016-12-25] MEDS ORDERED: CYAN1CAP3 PO (11:17)
[2016-12-25 11:21] VITALS: BP 125/78; PULSE 65; TEMP 36.9; O2SAT 91
[2016-12-25] MEDS ORDERED: CEPHALEXIN MONOHYDRATE 500 MG CAP PO SCH (21:00)
--- NOTE | 2016-12-28 23:05 | Discharge Summary ---
Discharge Summary Date of Service Dec 28, 2016. Discharge Summary Admission Date: Dec 23, 2016 at 14:32 Discharge Date: Dec 25, 2016 Discharge Disposition: Home Principal Diagnosis: obstructing right-sided kidney stone s/p stent placement Problems/Secondary Diagnoses: 1. sepsis 2nd to e coli UTI and obstructing kidney stone 2. chronic kidney disease stage 3-4, discharge Cr 1.7 3. CAD 4. T2DM 5. dyslipidemia 6. hypertension 7. lumbar spinal stenosis 8. GERD 9. hypothyroidism Immunizations: Have You Had Influenza Vaccine: Unknown Influenza Vaccine Date: Jan 30, 2009 History of Tetanus Vaccine?: Unknown History of Pneumococcal: Yes Pneumococcal Date: Apr 01, 2008 History of Hepatitis B Vaccine: Unknown Procedures: 1. CT abd/pelvis: IMPRESSION: 1. Obstructing 5 mm calculus in the distal right ureter with mild right hydroureteronephrosis. No other renal calculi. 2. Hepatic steatosis 2. Cystoscopy and Right Ureteral Stent Insertion - Leonel Bingham DO Consultations: urology- Leonel Bingham, Medication Reconciliation New Medications: Cyanocobalamin (B-12) 1,000 Mcg Cap 1000 MCG PO DAILY, #30 CAP 5 Refills Phenazopyridine Hcl (Pyridium) 100 Mg Tab 100 MG PO Q8H PRN for urinary discomfort, #15 TAB 0 Refills Cephalexin Monohydrate (Cephalexin) 500 Mg Cap 500 MG PO BID for 10 Days, #20 CAP 0 Refills Polyethylene (Miralax) 17 Gm Pow 17 GM PO DAILY, #1 BTL 2 Refills Continued Medications: Atorvastatin (Lipitor) 40 Mg Tab 40 MG PO DAILY, TAB Insulin Aspart (Novolog Flexpen) 100 Units/Ml Inj 1 DOSE SC TID SLIDING SCALE Insulin Glargine (Lantus Solostar) 100 Unit/Ml Inj 35 UNITS SQ QPM Levothyroxine Sodium (Levothyroxine Sodium) 50 Mcg Tab 1 TAB PO DAILY for 90 Days, #90 TAB 3 Refills Discontinued Medications: Losartan Potassium (Cozaar) 25 Mg Tab 25 MG PO DAILY, TAB Referrals At Discharge Follow up Referrals: Urologist Referral - 12/28/16 with Leonel Bingham D.O. Discharge Exam Physical Exam: General Appearance: WD/WN, no apparent distress, + obese ENT: pharynx normal Neck: no JVD Respiratory/Chest: lungs clear, no respiratory distress, no accessory muscle use Cardiovascular: regular rate, rhythm, no gallop, no murmur, normal peripheral pulses Abdomen / GI: normal bowel sounds, non tender, soft, no organomegaly Extremities: no pedal edema Neurologic/Psychiatric: alert, oriented x 3 Hospital Course HISTORY OF PRESENT ILLNESS: The patient is a 76-year-old white female with a significant past medical history of chronic kidney disease, T2DM, dyslipidemia, spinal stenosis, osteoarthritis, CAD, and GERD who presented to the hospital Emergency Department with abdominal pain. The patient reported she had been feeling sick for a couple days. She reported feeling like she had a urinary tract infection. Her dysuria and frequency had been getting worse. She reported having some cough but that it was not productive. This had been present for 3-4 weeks. Denied chest pain or palpitations. She reported some intermittent epigastric pain associated with nausea. However, she denied any vomiting. Denied diarrhea or constipation. Denied fever or chills. In the ER she underwent a CT scan of the abdomen & pelvis demonstrating a right-sided 5mm obstructing kidney stone in the distal ureter. HOSPITAL COURSE: The patient was treated with IV fluids, IV antibiotics, and pain medications for her UTI as well as obstructing kidney stone. She was seen in consult by Dr. Leonel Bingham, [facility], who performed cystoscopy with right-sided stent placement. The procedure was uncomplicated. She made steady clinical improvement in all UTI symptoms. At discharge her abdominal pain was resolved and she was eating well. Urine culture ultimately grew e. coli. She will discharge to home with a 10-day course of keflex twice daily, pain medication, and follow-up with Dr. Bingham on 12/28/16 for stent & stone management. Blood cultures remained negative during her stay. All other medical problems remained stable while hospitalized. Discharge creatinine was 1.7. Total Time Spent: Greater than 30 minutes This includes examination of the patient, discharge planning, medication reconciliation, and communication with other providers. Discharge Instructions Please refer to the electronic Patient Visit Report (Discharge Instructions) for additional information. Follow-Up see Dr. Leonel Bingham, urology, on Wednesday12/28/16 see PCP within 1-2 weeks Additional Copies To Leonel Bingham D.O.; Catarina Chand,
[2016-12-31] MEDS ORDERED: LOSA1TAB PO (09:00)
[2016-12-31] MEDS ORDERED: CYAN100020 PO (09:00)
[2016-12-31] MEDS ORDERED: CEPH500C2 PO (09:00)
[2017-01-05] MEDS ORDERED: CEPH500C2 PO (08:15)
[2017-01-05] MEDS ORDERED: HYDR-5688 PO (08:15)
[2017-01-05] MEDS ORDERED: PHEN-775 PO (08:15)
== END 2016-12-25 12:43 | disposition home or self-care (01) | DRG 693 ==
LOC: EDBD 10:06 → C.EDB 10:07 → C.MSN 14:32 → ENRESERV 15:13
PROVIDERS: ADMIT Hospitalist; ATTEND Internal Medicine
PROC: 0T768DZ Dilation of Right Ureter with Intraluminal Device, Via Natural or Artificial Opening Endoscopic (ICD-10-PCS; principal; 2016-12-24 08:30)
DX: N13.2 Hydronephrosis with renal and ureteral calculous obstruction (principal); A41.9 Sepsis, unspecified organism; N39.0 Urinary tract infection, site not specified; B96.20 Unspecified Escherichia coli [E. coli] as the cause of diseases classified elsewhere; D75.89 Other specified diseases of blood and blood-forming organs; I12.9 Hypertensive chronic kidney disease with stage 1 through stage 4 chronic kidney disease, or unspecified chronic kidney disease; E11.22 Type 2 diabetes mellitus with diabetic chronic kidney disease; N18.3 Chronic kidney disease, stage 3 (moderate); E78.5 Hyperlipidemia, unspecified; E03.9 Hypothyroidism, unspecified; I25.10 Atherosclerotic heart disease of native coronary artery without angina pectoris; M48.00 Spinal stenosis, site unspecified; E66.9 Obesity, unspecified; Z68.36 Body mass index [BMI] 36.0-36.9, adult; Z87.891 Personal history of nicotine dependence; Z79.4 Long term (current) use of insulin; Z79.899 Other long term (current) drug therapy; Z88.1 Allergy status to other antibiotic agents

== ENCOUNTER → 2017-01-04 | Outpatient (CLI) | payer OTHER ==
[~2017-01-04] MED LIST changes: +CEPH500C2 PO; +CYAN100020 PO; -CZR25 PO; +HYDR-5688 PO; -IBUP-1428 PO; -LEVO100T7 PO; +LEVO50TA6 PO; +LOSA1TAB PO; -NVLGI SC; +NVLGI/PEN SC; -PANT40TA PO; +PHEN-775 PO
--- NOTE | 2017-01-04 10:06 | DIAGNOSTIC IMAGING REPORT ---
KUB CLINICAL HISTORY: 76 years-old Female presenting with NEPHROLITHIASIS. TECHNIQUE: Single supine view of the abdomen was obtained. COMPARISON: 04/06/[address] from 12/23/2016. FINDINGS: Interval placement of a left ureteral stent. Multiple pelvic phleboliths noted. The 2 adjacent calcifications along the course of the ureter are difficult to assess if these represent residual ureteral calculi or phleboliths immediately abutting the ureter. No new ureteral calculi are evident. No calcifications project over the kidneys. Nonobstructive bowel gas pattern. No gross pneumoperitoneum. Degenerative changes of the lumbar spine with posterior fusion hardware at L5-S1. IMPRESSION: 1. Interval placement of a right ureteral stent. No new ureteral calculus. Electronically signed by: Baron Carcamo M.D. 01/04/2017 10:05 AM Dictated Date/Time: 01/04/2017 10:01 AM
== END | disposition home or self-care (01) ==
LOC: C.LABPVFM 09:42
PROVIDERS: ATTEND Urology
DX: N20.0 Calculus of kidney (principal)

== ENCOUNTER 2017-01-05 06:09 | Day surgery (SDC) | payer OTHER ==
[2016-12-31 09:00] VITALS: BMI 35.0
[~2017-01-05] VITALS: Ht 157.5 cm; Wt 87.0 kg
[~2017-01-05 06:09] MED LIST changes: +CEFAZOLIN 2000 MG/60 ML D5W IV SCH; -HYDR-5688 PO; +LACTATED RINGER'S 1000ML 1,000 ML IV SCH; -PHEN-775 PO
[2017-01-05 06:56] VITALS: BP 148/70; PULSE 68; TEMP 36.1; O2SAT 95; Ht 157.5 cm; Wt 87.0 kg
[2017-01-05] MEDS ORDERED: FENTANYL CITRATE INJ 50 MCG/1 ML 2 ML VIAL ONE (07:41)
[2017-01-05] MEDS ORDERED: LIDOCAINE HCL 2% 2 ML VIAL (20MG/ML) ONE (07:41)
[2017-01-05] MEDS ORDERED: ONDANSETRON INJ 2 MG/ML 2 ML VIAL ONE (07:41)
[2017-01-05] MEDS ORDERED: DEXAMETHASONE SOD INJ 4 MG/ML VIAL ONE (07:41)
[2017-01-05] MEDS ORDERED: PROPOFOL IV EMULSION 10 MG/ML 20 ML VIAL IV ONE ×2 (07:41→09:49)
[2017-01-05] MEDS ORDERED: FENTANYL CITRATE INJ 50 MCG/1 ML 2 ML VIAL IV PRN (07:45)
[2017-01-05] MEDS ORDERED: EpHEDrine SULFATE INJ 50 MG/ML AMP IV PRN (07:45)
[2017-01-05] MEDS ORDERED: ATROPINE SULFATE 0.1 MG/ML 5ML SYR IV PRN (07:45)
[2017-01-05] MEDS ORDERED: ONDANSETRON INJ 2 MG/ML 2 ML VIAL IV PRN (07:45)
--- NOTE | 2017-01-05 07:58 | History & Physical Bridge Note ---
H&P Re-Evaluation Bridge Note: I have examined the patient, reviewed the History & Physical and in the interval since the performance of the History & Physical I have noted the following changes of clinical significance: No changes noted
[2017-01-05] MEDS ORDERED: CONRAY 30% 150ML BOTTLE ONE (08:12)
[2017-01-05] MEDS ORDERED: PHEN-775 PO ×2 (08:15)
[2017-01-05] MEDS ORDERED: HYDR-5688 PO ×2 (08:15)
[2017-01-05] MEDS ORDERED: CEPH500C2 PO ×2 (08:15)
--- NOTE | 2017-01-05 08:17 | Discharge Instructions ---
Discharge Instructions Date of Service Jan 05, 2017. Admission Reason for Admission: Stones Discharge Discharge Diagnosis / Problem: Obstructing Stone Discharge Goals Goal(s): Decrease discomfort, Improve function Activity Recommendations Activity Limitations: resume your previous activity . Instructions / Follow-Up Instructions / Follow-Up May have blood in urine or pelvic discomfort. Monitor for fever or chills. Call with any issues or questions. Current Hospital Diet Hospital Diet(s): Regular Diet Discharge Diet Recommended Diet: Regular Diet Procedures Procedures Performed: Cysto, Ureteroscopy, Stent Removal Pending Studies Studies pending at discharge: no Laboratory Results Hemoglobin A1c Test 12/23/16 10:36 Range/Units Estimated Average Glucose 160 mg/dl Hemoglobin A1c 7.2 H 4.5-5.6 % Medical Emergencies . Who to Call and When: Medical Emergencies: If at any time you feel your situation is an emergency, please call 911 immediately. . Non-Emergent Contact Non-Emergency issues call your: Primary Care Provider, Urologist Call Non-Emergent contact if: you have a fever, temperature is above 101, your pain is not controlled, your pain is worsening . . "Provider Documentation" section prepared by Leonel Bingham,. . VTE Core Measure Inpt VTE Proph given/why not?: Gerry Knott, [employer]IC[facility]
[2017-01-05] MEDS ORDERED: EpHEDrine SULFATE INJ 50 MG/ML AMP ONE (08:36)
[2017-01-05] MEDS ORDERED: NURSING VERBAL MED ORDER ONE (09:15)
--- NOTE | 2017-01-05 09:26 | [facility] Operative Report ---
Operative Report Operative Date Jan 05, 2017. Pre-Operative Diagnosis Right ureteric stone; nephrolithiasis Post-Operative Diagnosis Right ureteric stone; nephrolithiasis; likely possible spontaneous passage Procedure(s) Performed Cysto, Ureteroscopy, Stent Removal Surgeon Dr. Bingham [employer] Surgeon(s) none Estimated Blood Loss 0mL Findings Bladder clear with no lesions or masses. Grade 2-3 Cystocele. Right Ureter and renal pelvis examined. No masses or lesions. No stone or calcifications. No swelling. Specimens none per surgeon Drains None Anesthesia General Complication(s) None Disposition Recovery Room / PACU Indications Obstructing Right Ureteral Stone s/p Stent Description of Procedure Patient was consented and brought back to the operating room. Patient was placed under anesthesia in the supine position. Patient was prepped and draped in the regular sterile fashion. A time out was completed. A 30degree Cystoscope was placed into the bladder and the entire bladder was examined. The UO's were identified. The right stent was grasped and partially removed. A wire was then placed. With the wire in place, a rigid ureteroscope was selected and the entire ureter was examined. The scope was taken into the proximal ureter. No stones or lesions or areas of swelling/irritation were discovered. The wire was left in place and the scope removed in order to place a flexible ureteroscope. The entire pelvis was examined. Patient was found to be clear of stones. No lesions or other areas of concern were noted. Contrast was injected through the scope and a retrograde pyleogram was reviewed. All areas of the renal pelvis were explored. The wire was then placed through the scope and the scope slowly removed. No stone or fragment were discovered. The scope was then removed and a cystoscope placed. Due to atraumatic ureteroscopy and no signs of edema or other areas of concern or stone obstruction, the decision to not place a stent was made. The wire was removed. Efflux of urine was visable with no issues. The entire bladder was once again examined. No masses or lesion were observed. The bladder was emptied. The scope was removed. The patient was cleaned, aroused from anesthesia, and transferred to the pacu in stable condition having tolerated the procedure well with no complications. I was present and participated in all aspects of the procedure. The patient will be monitored in the PACU until transferred. I attest to the content of the Intraoperative Record and any orders documented therein. Any exceptions are noted below.
[2017-01-05] MEDS ORDERED: HYDROCODONE/ACETAMOPHEN 5/325MG TAB PO PRN (09:30)
[2017-01-05] MEDS ORDERED: ALBUT/IPRATROP 3MG/0.5MG NEB 3 ML VIAL INH STA (09:41)
[2017-01-05 09:45] VITALS: PULSE 82; O2SAT 98
--- NOTE | 2017-01-05 09:58 | Anesthesiology Progress Note ---
Anesthesia Post Op Note Date & Time Jan 05, 2017 at 09:58 Vital Signs Pain Intensity: 0 Vital Signs Past 12 Hours Date Time Temp Pulse Resp B/P (MAP) Pulse Ox O2 Delivery O2 Flow Rate FiO2 01/05/17 09:45 36.3 70 20 128/53 95 Room Air 01/05/17 09:45 82 16 98 Nasal Cannula 2.0 01/05/17 09:35 69 15 123/52 94 Room Air 01/05/17 09:25 73 25 117/42 98 Nasal Cannula 2 01/05/17 09:15 77 28 121/52 98 Nasal Cannula 2 01/05/17 09:05 36.6 78 18 143/58 99 Oxymask 10 01/05/17 06:56 36.1 68 18 148/70 (96) 95 Room Air Notes Mental Status: alert / awake / arousable, participated in evaluation Pt Amnestic to Procedure: Yes Nausea / Vomiting: adequately controlled Pain: adequately controlled Airway Patency, RR, SpO2: stable & adequate BP & HR: stable & adequate Hydration State: stable & adequate Anesthetic Complications: no major complications apparent
[2017-01-05 10:04] VITALS: BP 120/56; PULSE 69; TEMP 36.5; O2SAT 98
[2017-01-05 10:35] VITALS: BP 109/55; PULSE 70; O2SAT 94
[2017-01-05 11:05] VITALS: BP 115/56; PULSE 74; TEMP 36.6; O2SAT 94
--- NOTE | 2017-01-05 11:07 | DIAGNOSTIC IMAGING REPORT ---
RETROGRADE INCLUDES KUB HISTORY: RT CYSTO/LASER/STENT FLUOROSCOPY TIME: 28 seconds. FINDINGS: 11 fluoroscopic spot images were submitted for review. Initial images demonstrate contrast opacification of the right renal collecting system in a retrograde fashion. This is followed by lithotripsy. IMPRESSION: Fluoroscopy provided for right-sided lithotripsy.. Electronically signed by: Christian Avelar M.D. 01/05/2017 11:06 AM Dictated Date/Time: 01/05/2017 11:05 AM
== END 2017-01-05 11:10 | disposition home or self-care (01) ==
LOC: C.ACU 06:09
PROVIDERS: ATTEND Urology
DX: N20.2 Calculus of kidney with calculus of ureter (principal); E66.9 Obesity, unspecified; Z68.37 Body mass index [BMI] 37.0-37.9, adult; E11.22 Type 2 diabetes mellitus with diabetic chronic kidney disease; I12.9 Hypertensive chronic kidney disease with stage 1 through stage 4 chronic kidney disease, or unspecified chronic kidney disease; N18.3 Chronic kidney disease, stage 3 (moderate); E72.11 Homocystinuria; M15.9 Polyosteoarthritis, unspecified; E78.5 Hyperlipidemia, unspecified; I49.1 Atrial premature depolarization; E11.40 Type 2 diabetes mellitus with diabetic neuropathy, unspecified; K21.9 Gastro-esophageal reflux disease without esophagitis; N81.11 Cystocele, midline; M11.20 Other chondrocalcinosis, unspecified site; F41.9 Anxiety disorder, unspecified; Z79.4 Long term (current) use of insulin; I73.00 Raynaud's syndrome without gangrene; E03.9 Hypothyroidism, unspecified; Z87.891 Personal history of nicotine dependence; Z79.899 Other long term (current) drug therapy

== ENCOUNTER → 2017-03-02 | Outpatient (CLI) | payer OTHER ==
[~2017-03-02] MED LIST changes: -CEFAZOLIN 2000 MG/60 ML D5W IV SCH; +HYDR-5688 PO; -LACTATED RINGER'S 1000ML 1,000 ML IV SCH
--- NOTE | 2017-03-02 10:54 | DIAGNOSTIC IMAGING REPORT ---
RENAL ULTRASOUND HISTORY: N20.0 [id number] COMPARISON: Abdomen and pelvis CT 12/23/2016. FINDINGS: Right kidney: 9.3 cm. No hydronephrosis. Normal corticomedullary differentiation and cortical thickness. Left kidney: 8.6 cm. No hydronephrosis. Normal corticomedullary differentiation and cortical thickness. Bladder: Bladder was not distended and not visualized. IMPRESSION: No hydronephrosis. The bladder was not visualized due to underdistention. Electronically signed by: Christian Avelar M.D. 03/02/2017 10:52 AM Dictated Date/Time: 03/02/2017 10:50 AM
== END | disposition home or self-care (01) ==
LOC: C.ULTR 10:04
PROVIDERS: ATTEND Urology
DX: N20.0 Calculus of kidney (principal)

== ENCOUNTER → 2017-07-30 | Outpatient (CLI) | payer OTHER ==
[~2017-07-30] MED LIST changes: -CEPH500C2 PO; -HYDR-5688 PO
[2017-07-30 13:01] LABS: BASO % 0.1 %; BASO ABS # 0.01 K/uL (0-0.2); EOS % 1.8 %; EOS ABS # 0.13 K/uL (0-0.5); HEMATOCRIT 41.6 % (37-47); HEMOGLOBIN 13.9 g/dL (12.0-16.0); IG# 0.03 K/uL (0.00-0.02); LYMPH % 27.7 %; LYMPH ABS # 1.98 K/uL (1.2-3.4); MEAN CELL VOLUME 98.3 fL (80-100); MEAN CORPUSCULAR HEMOGLOBIN 32.9 pg (25-34); MEAN CORPUSCULAR HGB CONC 33.4 g/dl (32-36); MEAN PLATELET VOLUME 12.3 fL (7.4-10.4); MONO % 9.8 %; NEUT % 60.2 %; PLATELET COUNT 199 K/uL (130-400); RED CELL DISTRIBUTION WIDTH CV 13.1 % (11.5-14.5); WHITE BLOOD COUNT 7.15 K/uL (4.8-10.8)
[2017-07-30 13:38] LABS: HEMOGLOBIN A1C 7.7 % (4.5-5.6)
[2017-07-30 14:23] LABS: ALBUMIN 3.7 gm/dl (3.4-5.0); ALT/SGPT 39 U/L (12-78); AST/SGOT 19 U/L (15-37); BLOOD UREA NITROGEN 28 mg/dl (7-18); CALCIUM 8.9 mg/dl (8.5-10.1); CARBON DIOXIDE 26 mmol/L (21-32); CHOLESTEROL 132 mg/dl (0-200); CREATININE 1.46 mg/dl (0.60-1.20); GLUCOSE 120 mg/dl (70-99); POTASSIUM 4.7 mmol/L (3.5-5.1); SODIUM 140 mmol/L (136-145)
[2017-07-30 14:26] LABS: ALKALINE PHOSPHATASE 65 U/L (45-117); LDL CHOLESTEROL CALCULATED 58 mg/dl; TOTAL PROTEIN 6.6 gm/dl (6.4-8.2)
== END | disposition home or self-care (01) ==
LOC: C.LABPVFM 09:32
PROVIDERS: ATTEND Family Medicine
DX: E11.9 Type 2 diabetes mellitus without complications (principal); I10 Essential (primary) hypertension; E78.5 Hyperlipidemia, unspecified

== ENCOUNTER → 2017-08-11 | Outpatient (CLI) | payer OTHER ==
--- NOTE | 2017-08-11 10:37 | DIAGNOSTIC IMAGING REPORT ---
(RENAL)RETROPERITON COMP HISTORY: Renal insufficiency URGE INCONTINENCE OF URINE COMPARISON: 03/02/2017 FINDINGS: Right kidney: Maximum dimension right kidney 8.9 cm. No evidence for hydronephrosis. Moderate cortical thinning and scarring Left kidney: Maximum dimension 9.3 cm. No evidence for hydronephrosis. Moderate cortical scarring and thinning Bladder: No bladder wall thickening. The bilateral ureteral jets were identified. IMPRESSION: 1. No evidence for hydronephrosis. 2. Moderate cortical scarring and thinning of the kidneys bilaterally. 3. No significant change from the prior study. The above report was generated using voice recognition software. It may contain grammatical, syntax or spelling errors. Electronically signed by: Lambert Barba M.D. 08/11/2017 10:35 AM Dictated Date/Time: 08/11/2017 10:34 AM
== END | disposition home or self-care (01) ==
LOC: C.ULTR 09:51
PROVIDERS: ATTEND Urology
DX: N28.9 Disorder of kidney and ureter, unspecified (principal); N39.41 Urge incontinence

== ENCOUNTER 2019-03-10 11:29 | Inpatient (IN) ==
[2019-03-10] MEDS ORDERED: ALBUTEROL 0.083% NEBU SOLN 3 ML VIAL INH STA (12:18)
[2019-03-10] MEDS ORDERED: predniSONE 10 MG TABLET PO STA (12:18)
[2019-03-10 12:28] LABS: Basophils # (auto) 0.01 K/uL (0-0.2); Basophils % (auto) 0.1 %; Eosinophils # (auto) 0.06 K/uL (0-0.5); Eosinophils % (auto) 0.7 %; Hematocrit (blood only) 41.1 % (37-47); Hemoglobin 13.6 g/dL (12.0-16.0); Immature Granulocytes # (auto) 0.02 K/uL (0.00-0.02); Immature Granulocytes % (auto) 0.2 %; Lymphocytes # (auto) 1.62 K/uL (1.2-3.4); Lymphocytes % (auto) 19.5 %; Mean Corpuscular Hemoglobin 33.3 pg (25-34); Mean Corpuscular Hgb Conc 33.1 g/dL (32-36); Mean Corpuscular Volume 100.7 fL (80-100); Mean Platelet Volume 12.3 fL (7.4-10.4); Monocytes # (auto) 0.53 K/uL (0.11-0.59); Monocytes % (auto) 6.4 %; Neutrophils # (auto) 6.08 K/uL (1.4-6.5); Neutrophils % (auto) 73.1 %; Platelet Count 164 K/uL (130-400); RDW Coefficient of Variation 12.9 % (11.5-14.5); RDW Standard Deviation 47.5 fL (36.4-46.3); Red Blood Count 4.08 M/uL (4.2-5.4); White Blood Count 8.32 K/uL (4.8-10.8)
[2019-03-10] MEDS ORDERED: SODIUM CHLORIDE 0.9% 500 ML IV SCH (12:30)
--- NOTE | 2019-03-10 12:36 | Emergency Department Note ---
Entered by Lina Fischer acting as a scribe for History of Present Illness General Chief complaint: Shortness of Breath/Dyspnea Stated complaint: SHORTNESS OF BREATH Source: patient History of Present Illness Onset (ago): hour(s) (this morning) Location: chest Pain Consistency: + other (worsening) Quality: + other (shortness of breath) Associated symptoms: + denies other symptoms (burning with urination, abdominal pain), + cough and + other (runny nose, sore throat, ear pain); no chest pain The patient is a 78 year old female who presents to the Emergency Room with complaints of worsening shortness of breath beginning this morning. The patient reports having a cold with a cough, runny nose, sore throat, and ear pain for the past two weeks. She denies chest pain, burning with urination, and abdominal pain. The patient denies recent hospital admissions and sick contacts. She reports a history of smoking. The patient denies a history of COPD, [place], and heart failure. Patient denies any other exacerbating or remitting factors. Home Medications Home Medications Medication Instructions Recorded Confirmed Type atorvastatin 40 mg tablet 40 mg PO HS #90 tab 11/02/18 03/10/19 Rx insulin aspart U-100 100 unit/mL See Rx Instructions SUBCUT 11/02/18 03/10/19 Rx (3 mL) subcutaneous pen .COMPLEX #15 ml cholecalciferol (vitamin D3) 2,000 unit PO QAM 03/10/19 03/10/19 History [Vitamin D3] cyanocobalamin (vitamin B-12) 1,000 mcg PO QAM 03/10/19 03/10/19 History insulin glargine 36 unit SUBCUT HS 03/10/19 03/10/19 History levothyroxine 50 mcg PO QAM 03/10/19 03/10/19 History losartan 25 mg PO QAM 03/10/19 03/10/19 History oxybutynin chloride 5 mg PO QAM PRN 03/10/19 03/10/19 History terazosin 1 mg PO HS 03/10/19 03/10/19 History Allergies Allergy/AdvReac Type Severity Reaction Status Date / Time levofloxacin Allergy Unknown ?? Verified 03/10/19 14:[address] LAI moxifloxacin AdvReac Mild DIARRHEA Verified 03/10/19 14:10 Past Med/Surg History Medical History Acid reflux disease (Acute) Anxiety (Acute) CKD (chronic kidney disease), stage III (Acute) Cystocele, midline (Acute) Diabetes mellitus (Acute) Disc degeneration, lumbar (Acute) DJD (degenerative joint disease) (Acute) Generalized osteoarthritis of multiple sites (Acute) Hyperlipidemia (Acute) Hypertension (Acute) Nephrolithiasis (Acute) PAC (premature atrial contraction) (Acute) Peripheral neuropathy (Acute) Prolapse of vaginal vaughn (Acute) Pseudogout (Acute) Raynaud's disease (Acute) Spinal stenosis (Acute) Subclinical hypothyroidism (Acute) Urge and stress incontinence (Acute) Surgical History History of back surgery x3 Family History Mother Cardiac disorder Myocardial infarction Father Cardiac disorder Diabetes Brother Myocardial infarction Aunt Ovarian cancer Maternal Social History Visual Impairment: No Limitations Hearing Ability: Normal marital status: / Current Living Situation: Alone current occupational status: retired Feels Safe at Home: Yes Smoking Status: Former smoker Second Hand Exposure: No ; Hx Alcohol Use: No Hx Substance Use: No Dental Care, Regularly: Yes Physical Activity Frequency: Does not Exercise Seatbelt Use: always Review of Systems See HPI for pertinent positives & negatives. and A total of 10 systems reviewed and were otherwise negative Physical Exam Vital Signs Vital Signs - 24 hr 03/10/19 11:31 03/10/19 11:45 03/10/19 11:48 Temperature 36.3 C L Temperature Source Oral Pulse Rate 85 79 Pulse Rate [Apical] Pulse Rate from SpO2 Sensor 75 Respiratory Rate 26 H 21 Respiratory Effort / Characteristics Short of Breath SOB on Exertion Spontaneous Labored SOB on Exertion Respiratory Depth Shallow Shallow Respiratory Pattern Rapid/Shallow Regular Tachypnea Blood Pressure 173/60 H 164/106 H Blood Pressure Mean 97 112 Pulse Oximetry 91 87 L 93 Pulse Oximetry [Exercises] Oxygen Delivery Method Room Air Room Air Oxygen Flow Rate 3 Sepsis Recent Fever Within 48 Hours No Sepsis Action Taken by Nursing No Action Required Oxygen Flow Rate - Titration 3 Pulse Oximetry Post Tiitration 95 03/10/19 11:52 03/10/19 12:00 03/10/19 12:18 Temperature Temperature Source Pulse Rate 76 77 Pulse Rate [Apical] Pulse Rate from SpO2 Sensor 78 75 Respiratory Rate 27 H 21 Respiratory Effort / Characteristics Respiratory Depth Respiratory Pattern Blood Pressure Blood Pressure Mean Pulse Oximetry 90 96 93 Pulse Oximetry [Exercises] Oxygen Delivery Method Nasal Cannula Oxygen Flow Rate 3 3 3 Sepsis Recent Fever Within 48 Hours Sepsis Action Taken by Nursing Oxygen Flow Rate - Titration Pulse Oximetry Post Tiitration 03/10/19 12:30 03/10/19 12:32 03/10/19 13:00 Temperature Temperature Source Pulse Rate 71 72 Pulse Rate [Apical] 74 Pulse Rate from SpO2 Sensor 68 75 Respiratory Rate 21 20 21 Respiratory Effort / Characteristics Non-Labored Spontaneous Respiratory Depth Respiratory Pattern Blood Pressure Blood Pressure Mean Pulse Oximetry 97 96 96 Pulse Oximetry [Exercises] Oxygen Delivery Method Nasal Cannula Oxygen Flow Rate 3 3 3 Sepsis Recent Fever Within 48 Hours Sepsis Action Taken by Nursing Oxygen Flow Rate - Titration Pulse Oximetry Post Tiitration 03/10/19 13:18 03/10/19 13:21 03/10/19 13:28 Temperature Temperature Source Pulse Rate 92 H Pulse Rate [Apical] 90 Pulse Rate from SpO2 Sensor 92 H Respiratory Rate 91 H 19 Respiratory Effort / Characteristics Short of Breath Respiratory Depth Respiratory Pattern Blood Pressure 169/70 H Blood Pressure Mean 98 Pulse Oximetry 91 88 L Pulse Oximetry [Exercises] 87 L Oxygen Delivery Method Room Air Room Air Oxygen Flow Rate 3 3 Sepsis Recent Fever Within 48 Hours Sepsis Action Taken by Nursing Oxygen Flow Rate - Titration Pulse Oximetry Post Tiitration 03/10/19 13:30 03/10/19 14:00 03/10/19 14:09 Temperature Temperature Source Pulse Rate 90 81 Pulse Rate [Apical] 81 Pulse Rate from SpO2 Sensor 87 81 Respiratory Rate 17 29 H 18 Respiratory Effort / Characteristics Non-Labored Spontaneous Respiratory Depth Respiratory Pattern Blood Pressure 154/80 H 171/74 H Blood Pressure Mean 116 88 Pulse Oximetry 92 96 96 Pulse Oximetry [Exercises] Oxygen Delivery Method Nasal Cannula Oxygen Flow Rate 2 Sepsis Recent Fever Within 48 Hours Sepsis Action Taken by Nursing Oxygen Flow Rate - Titration Pulse Oximetry Post Tiitration 03/10/19 14:30 03/10/19 15:00 03/10/19 15:07 Temperature Temperature Source Pulse Rate 80 73 83 Pulse Rate [Apical] Pulse Rate from SpO2 Sensor 81 73 74 Respiratory Rate 30 H 32 H 28 H Respiratory Effort / Characteristics Respiratory Depth Respiratory Pattern Blood Pressure 140/71 Blood Pressure Mean 113 Pulse Oximetry 92 94 92 Pulse Oximetry [Exercises] Oxygen Delivery Method Oxygen Flow Rate Sepsis Recent Fever Within 48 Hours Sepsis Action Taken by Nursing Oxygen Flow Rate - Titration Pulse Oximetry Post Tiitration 03/10/19 15:08 03/10/19 15:30 03/10/19 15:31 Temperature Temperature Source Pulse Rate 80 73 73 Pulse Rate [Apical] Pulse Rate from SpO2 Sensor 73 81 Respiratory Rate 26 H 24 24 Respiratory Effort / Characteristics Respiratory Depth Respiratory Pattern Blood Pressure 140/78 Blood Pressure Mean 114 Pulse Oximetry 93 93 Pulse Oximetry [Exercises] Oxygen Delivery Method Oxygen Flow Rate Sepsis Recent Fever Within 48 Hours Sepsis Action Taken by Nursing Oxygen Flow Rate - Titration Pulse Oximetry Post Tiitration 03/10/19 16:00 03/10/19 16:30 03/10/19 17:00 Temperature Temperature Source Pulse Rate 79 82 84 Pulse Rate [Apical] Pulse Rate from SpO2 Sensor 79 81 83 Respiratory Rate 21 21 30 H Respiratory Effort / Characteristics Respiratory Depth Respiratory Pattern Blood Pressure 157/65 H 110/90 Blood Pressure Mean 109 95 Pulse Oximetry 95 94 93 Pulse Oximetry [Exercises] Oxygen Delivery Method Room Air Oxygen Flow Rate 3 Sepsis Recent Fever Within 48 Hours Sepsis Action Taken by Nursing Oxygen Flow Rate - Titration Pulse Oximetry Post Tiitration GENERAL: Sitting up, moist persistent cough, on nasal cannula, dyspneic on co nversation EYE EXAM: normal conjunctiva, PERRL and EOM's grossly intact OROPHARYNX: no exudate, no erythema, lips, buccal mucosa, and tongue normal and mucous membranes are moist NECK: supple, no nuchal rigidity, no adenopathy, non-tender LUNGS: Diffuse rhonchi bilaterally. Normal chest wall mechanics HEART: no murmurs, S1 normal and S2 normal ABDOMEN: abdomen soft, non-tender, normo-active bowel sounds, no masses, no rebound or guarding. BACK: Back is symmetrical on inspection and there is no deformity, no midline tenderness, no CVA tenderness. SKIN: no rashes and no bruising UPPER EXTREMITIES: upper extremities are grossly normal. LOWER EXTREMITIES: No pitting edema. Calves equal bilaterally NEURO EXAM: Normal sensorium, cranial nerves II-XII grossly intact, normal speech, no gross weakness of arms, no gross weakness of legs. Course Course ED COURSE: Vital signs were reviewed and showed hypoxia, tachypnea, and situational hypertension. The patients medical record was reviewed The above diagnostic studies were performed and reviewed. ED treatments and interventions as stated above. 1212: The patient was evaluated in room A02. A complete history and physical examination was performed. 1345: Upon reevaluation, the patient is feeling better after her nebulizer treatment. She is being given another neb treatment. I discussed my findings with the patient and she understands and agrees with the treatment plan. Based on the patients age, coexisting illnesses, exam and lab findings the dec ision to treat as an inpatient was made. I spoke with Dr. Rueda - [facility] Hospitalist who agrees to further evaluate the patient. The patient remained stable while under my care. The patient will be evaluated for further management. Administered Medications Discontinued Medications Albuterol (Ventolin 0.083% 2.5mg/3ml) 5 mg INH NOW STA Stop: 03/10/19 12:19 Last Admin: 03/10/19 12:31 Dose: 5 mg Documented by: [id number] Albuterol (Ventolin 0.083% 2.5mg/3ml) 5 mg NEB NOW STA Stop: 03/10/19 13:50 Last Admin: 03/10/19 14:08 Dose: 5 mg Documented by: [id number] Benzonatate (Tessalon Perle) 100 mg PO NOW ONE Stop: 03/10/19 17:07 Last Admin: 03/10/19 17:12 Dose: 100 mg Documented by: [id number] Sodium Chloride (Nss) 500 mls @ 999 mls/hr IV .Q31M ASHWIN Stop: 03/10/19 13:00 Last Infusion: 03/10/19 14:00 Dose: 0 mls/hr Documented by: [id number] Admin: 03/10/19 13:17 Dose: 999 mls/hr Documented by: [id number] Ceftriaxone Sodium (Rocephin) 1,000 mg in 50 mls @ 100 mls/hr IV NOW STA Stop: 03/10/19 14:10 Last Infusion: 03/10/19 15:10 Dose: 0 mls/hr Documented by: [id number] Admin: 03/10/19 14:20 Dose: 100 mls/hr Documented by: [id number] Prednisone (Prednisone) 50 mg PO ONE STA Stop: 03/10/19 12:19 Last Admin: 03/10/19 13:16 Dose: 50 mg Documented by: [id number] Critical Care Time Critical Care Time: Yes Total Critical Care Time: 32 I have personally spent 32 minutes of critical care time in the direct management of this patient. This includes bedside care, interpretation of diagnostic studies, and testing, discussion with consultants, patient, and family members, and other required patient management activities. This 32 minutes is in excess of all separately billable procedures. Medical Decision Making Differential Diagnosis Differential diagnoses includes but is not limited to pneumonia, bronchitis, COPD/Asthma exacerbation, pneumothorax, pulmonary embolism, congestive heart failure, acute coronary syndrome Medical Records Attestation: I reviewed the patient's medical records. Home Medications Current Medication List: was personally reviewed by me Laboratory Data Attestation: I reviewed the patient's lab results. Result diagrams: 03/10/19 11:55 03/10/19 11:55 Lab Results 03/10/19 03/10/19 03/10/19 Range/Units 11:55 11:55 11:55 WBC 8.32 (4.8-10.8) K/uL RBC 4.08 L (4.2-5.4) M/uL Hgb 13.6 (12.0-16.0) g/dL Hct 41.1 (37-47) % MCV 100.7 H (80-100) fL MCH 33.3 (25-34) pg MCHC 33.1 (32-36) g/dL RDW Std Deviation 47.5 H (36.4-46.3) fL RDW Coeff of Adrienne 12.9 (11.5-14.5) % Plt Count 164 (130-400) K/uL MPV 12.3 H (7.4-10.4) fL Immature Gran % (Auto) 0.2 % Neut % (Auto) 73.1 % Lymph % (Auto) 19.5 % Twiggs % (Auto) 6.4 % Eos % (Auto) 0.7 % Baso % (Auto) 0.1 % Immature Gran # (Auto) 0.02 (0.00-0.02) K/uL Neut # (Auto) 6.08 (1.4-6.5) K/uL Lymph # (Auto) 1.62 (1.2-3.4) K/uL Twiggs # (Auto) 0.53 (0.11-0.59) K/uL Eos # (Auto) 0.06 (0-0.5) K/uL Baso # (Auto) 0.01 (0-0.2) K/uL PT 10.1 (9.0-12.0) Seconds INR 1.0 (0.9-1.1) APTT 22.9 (21.0-31.0) Seconds PTT Ratio 0.8 Sodium 141 (136-145) mmol/L Potassium 4.6 (3.5-5.1) mmol/L Chloride 110 H (98-107) mmol/L Carbon Dioxide 28 (21-32) mmol/L Anion Gap 3.0 (3-11) BUN 22 H (7-18) mg/dl Creatinine 1.46 H (0.6-1.2) mg/dl Est Cr Clr Drug Dosing 32.3 ml/min Est GFR ( Amer) 39.5 Est GFR (Non-Af Amer) 34.1 BUN/Creatinine Ratio 15.2 (10-20) Glucose 92 (70-99) mg/dl POC Glucose (70-99) Calcium 9.1 (8.5-10.1) mg/dl Total Bilirubin 0.7 (0.2-1) mg/dl AST 20 (15-37) U/L ALT 26 (12-78) U/L Alkaline Phosphatase 70 (45-117) U/L Troponin I < 0.015 (0-0.045) ng/ml Total Protein 7.3 (6.4-8.2) gm/dl Albumin 3.9 (3.4-5.0) gm/dl Globulin 3.4 (2.5-4.0) gm/dl Albumin/Globulin Ratio 1.1 (0.9-2) Influenza Type A (PCR) (Neg) Influenza Type B (PCR) (Neg) 03/10/19 03/10/19 Range/Units 12:20 17:05 WBC (4.8-10.8) K/uL RBC (4.2-5.4) M/uL Hgb (12.0-16.0) g/dL Hct (37-47) % MCV (80-100) fL MCH (25-34) pg MCHC (32-36) g/dL RDW Std Deviation (36.4-46.3) fL RDW Coeff of Adrienne (11.5-14.5) % Plt Count (130-400) K/uL MPV (7.4-10.4) fL Immature Gran % (Auto) % Neut % (Auto) % Lymph % (Auto) % Twiggs % (Auto) % Eos % (Auto) % Baso % (Auto) % Immature Gran # (Auto) (0.00-0.02) K/uL Neut # (Auto) (1.4-6.5) K/uL Lymph # (Auto) (1.2-3.4) K/uL Twiggs # (Auto) (0.11-0.59) K/uL Eos # (Auto) (0-0.5) K/uL Baso # (Auto) (0-0.2) K/uL PT (9.0-12.0) Seconds INR (0.9-1.1) APTT (21.0-31.0) Seconds PTT Ratio Sodium (136-145) mmol/L Potassium (3.5-5.1) mmol/L Chloride (98-107) mmol/L Carbon Dioxide (21-32) mmol/L Anion Gap (3-11) BUN (7-18) mg/dl Creatinine (0.6-1.2) mg/dl Est Cr Clr Drug Dosing ml/min Est GFR ( Amer) Est GFR (Non-Af Amer) BUN/Creatinine Ratio (10-20) Glucose (70-99) mg/dl POC Glucose 234 H (70-99) Calcium (8.5-10.1) mg/dl Total Bilirubin (0.2-1) mg/dl AST (15-37) U/L ALT (12-78) U/L Alkaline Phosphatase (45-117) U/L Troponin I (0-0.045) ng/ml Total Protein (6.4-8.2) gm/dl Albumin (3.4-5.0) gm/dl Globulin (2.5-4.0) gm/dl Albumin/Globulin Ratio (0.9-2) Influenza Type A (PCR) Neg for Influ A (Neg) Influenza Type B (PCR) Neg for Influ B (Neg) Imaging Data Radiologist's Impression: Radiology results as stated below per my review and the radiologist's interpretation: XR chest 1V portable CLINICAL HISTORY: Dyspnea COMPARISON STUDY: Chest radiograph December 23, 2016. FINDINGS: Lung volumes are normal. Lungs are clear. There is no pneumothorax or pleural effusion. Cardiac size is normal. Mediastinal contours are normal. There is no evidence for pulmonary edema. IMPRESSION: No acute cardiopulmonary findings. Electronically signed by: Meek Encarnacion M.D. 03/10/2019 12:56 PM ECG Data Attestation: I personally reviewed and interpreted this ECG as follows: Indication: + SOB/dyspnea Rate (beats per minute): 64 Rhythm: + sinus rhythm ECG Correll: + Normal ECG ST segments: + T-wave inversions ECG Findings: + Other (poor baseline in the anterior leads; AVL); no PVCs Blood Pressure Blood Pressure Findings: Elevated blood pressure Blood Pressure Disposition: further management by hospitalist JOHN Narrative Patient is a 78-year-old female that presents the ER for shortness of breath which started today associated with cough, runny nose and sore throat which is been present for the past week. She admits to being a previous smoker but has not smoked recently. IV was established blood work was obtained. Upon arrival she was found to be hypoxic at 85% on room air. IV was established blood work was obtained as discussed previously and showed no significant leukocytosis or anemia. INR was unremarkable. BMP with a creatinine 1.46, LFTs bilirubin and troponin was unremarkable. Influenza was negative. Chest x-ray without any focal infiltrate. With her history of smoking I did elect to give her steroids and multiple rounds of albuterol treatment. She was also given IV azithromycin and Rocephin treatment for bronchiolitis. Calves are equal bilateral. This does appear to be infectious as opposed to PE. Updated patient and sister at bedside. Impression & Plan Hypoxic, Bronchitis, Cough, SOB (shortness of breath) Discharge Plan Visit Data Chief Complaint: Shortness of Breath/Dyspnea Stated Complaint: SHORTNESS OF BREATH ED Provider: Branden Penny Discharge Problem: Hypoxic, Bronchitis, Cough, SOB (shortness of breath) Patient Disposition: Being Evaluated by Hospitalist Discharge Instructions Interventions: ED Discharge Assessment Last Done: 03/10/19 17:00 Forms Stand Alone Forms: My [facility] [id number] Prescriptions Prescriptions: No Action atorvastatin 40 mg tablet 40 mg PO HS Qty: 90 RF: 0 insulin aspart U-100 100 unit/mL (3 mL) insulin pen See Patient Comments subcut .COMPLEX Qty: 15 RF: 0 cholecalciferol (vitamin D3) [Vitamin D3] 25 mcg (1,000 unit) Tablet 2,000 unit PO QAM RF: 0 cyanocobalamin (vitamin B-12) 1,000 mcg tablet extended release 1,000 mcg PO QAM RF: 0 terazosin 1 mg capsule 1 mg PO HS RF: 0 levothyroxine 50 mcg tablet 50 mcg PO QAM RF: 0 losartan 25 mg tablet 25 mg PO QAM RF: 0 oxybutynin chloride 5 mg tablet extended release 24hr 5 mg PO QAM PRN (Reason: OVERACTIVE BLADDER) RF: 0 insulin glargine 100 unit/mL (3 mL) insulin pen 36 unit subcut HS RF: 0 Referrals Referrals: Catarina Chand, DO [Primary Care Provider] - The scribe's documentation has been prepared under my direction and personally reviewed by me in its entirety. I confirm that the note above accurately reflects all work, treatment, procedures, and medical decision making performed by me.
[2019-03-10 12:47] LABS: Alanine Aminotransferase 26 U/L (12-78); Albumin Level 3.9 gm/dl (3.4-5.0); Aspartate Aminotransferase 20 U/L (15-37); BUN Creatinine Ratio 15.2 (10-20); Blood Urea Nitrogen 22 mg/dl (7-18); Calcium 9.1 mg/dl (8.5-10.1); Carbon Dioxide 28 mmol/L (21-32); Chloride 110 mmol/L (98-107); Creatinine Clr Calc Pharmacy 32.3 ml/min; Est GFR (African American) 39.5; Est GFR (Non-African American) 34.1; Glucose 92 mg/dl (70-99); Potassium 4.6 mmol/L (3.5-5.1); Sodium 141 mmol/L (136-145)
[2019-03-10 12:51] LABS: Partial Thromboplastin Ratio 0.8; Partial Thromboplastin Time 22.9 Seconds (21.0-31.0); Prothrombin Time 10.1 Seconds (9.0-12.0)
[2019-03-10 12:52] LABS: Albumin Globulin Ratio 1.1 (0.9-2); Alkaline Phosphatase 70 U/L (45-117); Bilirubin,Total 0.7 mg/dl (0.2-1); Globulin 3.4 gm/dl (2.5-4.0); Total Protein 7.3 gm/dl (6.4-8.2); Troponin I < 0.015 ng/ml (0-0.045)
--- NOTE | 2019-03-10 12:58 | XRay Report ---
XR chest 1V portable CLINICAL HISTORY: Dyspnea COMPARISON STUDY: Chest radiograph December 23, 2016. FINDINGS: Lung volumes are normal. Lungs are clear. There is no pneumothorax or pleural effusion. Car diac size is normal. Mediastinal contours are normal. There is no evidence for pulmonary edema. IMPRESSION: No acute cardiopulmonary findings. Electronically signed by: Meek Encarnacion M.D. 03/10/2019 12:56 PM
[2019-03-10 13:19] LABS: Influenza A virus by PCR Neg for Influ A (Neg); Influenza B virus by PCR Neg for Influ B (Neg)
[2019-03-10] MEDS ORDERED: cefTRIAXone SODIUM 1,000 MG/50 ML BAG IV STA ×2 (13:41→18:33)
[2019-03-10] MEDS ORDERED: AZITHROMYCIN 500 MG in DEXTROSE 5% 250 ML IV SCH (13:45)
[2019-03-10] MEDS ORDERED: ALBUTEROL 0.083% NEBU SOLN 3 ML VIAL NEB STA (13:49)
--- NOTE | 2019-03-10 15:37 | History & Physical Report ---
Date of Service March 10, 2019 Assessment & Plan (1) Acute respiratory failure: Likely due to COPD exacerbation Admit to [facility] on telemetry Continue supplemental oxygen and keep oxygenation above 92%. Replenish electrolytes Patient is started on Zithromax and ceftriaxone empirically to cover for bronchitis versus possible pneumonia. Procalcitonin negative. Consider de-escalating antibiotics except for Zithromax that can be continued for COPD exacerbation. Continue duo nebs every 4 hours for shortness of breath, budesonide formoterol 2 puffs twice daily, Solu-Medrol 30 mg IV twice daily and taper down. DVT prophylaxis heparin 5000 units every 12. Full code Present on Admission?: Yes (2) Bronchitis: As discussed above Present on Admission?: Yes (3) Vitamin D deficiency: Will check vitamin D in a.m. Continue for now vitamin D3 2000 units p.o. every morning. Present on Admission?: Yes (4) Subclinical hypothyroidism: Resolved. TSH now is 1.82. Continue home dose of levothyroxine 50 MCG's p.o. every morning. Present on Admission?: Yes (5) Hypertension: Stable, continue losartan 25 mg p.o. every morning. Continue monitoring blood pressure every 4 hours as per [facility] protocol. Terazosin 1 mg p.o. nightly. Present on Admission?: Yes (6) Hyperlipidemia: Lipid panel pending. Continue atorvastatin 40 mg p.o. nightly. Present on Admission?: Yes (7) Diabetes mellitus: Continue two thirds of home dose of glargine which is 24 units total while patient is in the hospital and sliding scale insulin. Accu-Cheks before meals and at bedtime. Placed consult for pharmacy to control patient's hyperglycemia. Present on Admission?: Yes (8) CKD (chronic kidney disease), stage III: Avoid nephrotoxic agents. Continue controlling blood pressure. And diabetes. A1c pending. Present on Admission?: Yes (9) Urge and stress incontinence: Continue home medicine: Oxybutynin chloride 5 mg p.o. every morning as needed. Present on Admission?: Yes History of Present Illness Chief Complaint: Productive cough, acute respiratory failure, hypoxia acute COPD exacerbation. Primary Care Provider: Catarina Chand DO Patient is a 78 years old female with past medical history of diabetes mellitus type 2, hypertension, hyperlipidemia, nephrolithiasis, Raynaud's disease, PA-C, pseudogout, spinal stenosis, subclinical hypothyroidism, urgent stress incontinence, degenerative joint disease, who presents to the emergency room with runny nose sore throat ear pain and worsening shortness of breath beginning this morning. Patient reports having cold with a cough runny nose sore throat and ear pain for the past 2 weeks. Patient still smokes approximately 1 to 2 cigarettes/day. Patient denies any other exacerbating or remitting factors. Patient also denies a sick contact. Patient does not use oxygen at home, but in the emergency room she needed to be 9 3 L to oxygenate above 92%. Labs are reviewed: Which shows WBC is 8.32, hemoglobin 13.6, hematocrit 41.1, platelets 164. PT 10.1, INR 1, APTT 22.9, sodium 141, potassium 4.6, chloride 110, BUN 22, creatinine 1.46, GFR of 34.1, elevated blood glucose of 234, procalcitonin 0.05, BNP 570. Influenza A&B negative. Chest x-ray no acute cardiopulmonary findings, lungs are clear, there is no pneumothorax or pleural effusion there is no evidence of pulmonary edema. Decision was made to admit patient at [facility] with telemetry for further evaluation and treatment of acute respiratory failure, hypoxia, and acute COPD exacerbation. Allergies Allergy/AdvReac Type Severity Reaction Status Date / Time levofloxacin Allergy Unknown ?? Verified 03/10/19 14:[address] LAI moxifloxacin AdvReac Mild DIARRHEA Verified 03/10/19 14:10 Home Medications Home Medications Medication Instructions Recorded Confirmed Type atorvastatin 40 mg tablet 40 mg PO HS #90 tab 11/02/18 03/10/19 Rx insulin aspart U-100 100 unit/mL See Rx Instructions SUBCUT 11/02/18 03/10/19 Rx (3 mL) subcutaneous pen .COMPLEX #15 ml cholecalciferol (vitamin D3) 2,000 unit PO QAM 03/10/19 03/10/19 History [Vitamin D3] cyanocobalamin (vitamin B-12) 1,000 mcg PO QAM 03/10/19 03/10/19 History insulin glargine 36 unit SUBCUT HS 03/10/19 03/10/19 History levothyroxine 50 mcg PO QAM 03/10/19 03/10/19 History losartan 25 mg PO QAM 03/10/19 03/10/19 History oxybutynin chloride 5 mg PO QAM PRN 03/10/19 03/10/19 History terazosin 1 mg PO HS 03/10/19 03/10/19 History Past Med/Surg History Medical History Acid reflux disease (Acute) Anxiety (Acute) CKD (chronic kidney disease), stage III (Acute) Cystocele, midline (Acute) Diabetes mellitus (Acute) Disc degeneration, lumbar (Acute) DJD (degenerative joint disease) (Acute) Generalized osteoarthritis of multiple sites (Acute) Hyperlipidemia (Acute) Hypertension (Acute) Nephrolithiasis (Acute) PAC (premature atrial contraction) (Acute) Peripheral neuropathy (Acute) Prolapse of vaginal vaughn (Acute) Pseudogout (Acute) Raynaud's disease (Acute) Spinal stenosis (Acute) Subclinical hypothyroidism (Acute) Urge and stress incontinence (Acute) Surgical History History of back surgery x3 Family History Mother Cardiac disorder Myocardial infarction Father Cardiac disorder Diabetes Brother Myocardial infarction Aunt Ovarian cancer Maternal Social History Communication Ability: Effective Visual Impairment: No Limitations Hearing Ability: Normal Compensation And Benefits Manager Required: No Beliefs That Will Affect Care: None marital status: / Current Living Situation: Alone current occupational status: retired Feels Safe at Home: Yes Safety Concerns: Feels Safe At This Time Smoking Status: Light tobacco smoker Tobacco Type: cigarettes ; Do You Dip or Chew Tobacco: No ; Second Hand Exposure: No ; Hx Alcohol Use: No Hx Substance Use: No Dental Care, Regularly: Yes Physical Activity Frequency: Does not Exercise Seatbelt Use: always Review of Systems Review of Systems: All systems reviewed & are unremarkable except as noted in HPI & below Physical Exam Constitutional: WD/WN, vitals as above well developed, + ill appearing and + obese Eyes: PERRL, conjunctivae normal, anicteric sclerae ENMT: external ear and nose normal, oropharynx normal Neck: trachea midline, no thyromegaly Respiratory: Auscultation: + wheezes Cardiovascular: Heart Sounds: normal S1 and normal S2 Vessels: dorsalis pedis pulses present Gastrointestinal (Abdomen): normal bowel sounds, soft, nontender, no hepatosplenomegaly Musculoskeletal: no cyanosis or clubbing, extremities motor strength 5/5 Skin: no rashes, warm and dry Neurologic: patellar DTR's 2+ bilat, sensation intact Psychiatric: A+Ox3, euthymic affect Lymphatic: no cervical or axillary lymphadenopathy Results & Data Vital Signs (Past 12 Hours) Vital Signs Temp Pulse Pulse Resp BP Pulse Ox Pulse Ox 03/10/19 15:07 83 28 H 140/71 92 03/10/19 15:00 73 32 H 94 03/10/19 14:30 80 30 H 92 03/10/19 14:09 81 18 96 03/10/19 14:00 81 29 H 171/74 H 96 03/10/19 13:30 90 17 154/80 H 92 03/10/19 13:28 87 L 03/10/19 13:21 92 H 19 169/70 H 88 L 03/10/19 13:18 90 91 H 91 03/10/19 13:00 72 21 96 03/10/19 12:32 74 20 96 03/10/19 12:30 71 21 97 03/10/19 12:18 93 03/10/19 12:00 77 21 96 03/10/19 11:52 76 27 H 90 03/10/19 11:48 79 21 164/106 H 93 03/10/19 11:45 87 L 03/10/19 11:31 36.3 C L 85 26 H 173/60 H 91 Code Status & VTE Plan Code Status Full code VTE Prophylaxis Plan VTE Prophylaxis will be ordered: Yes PG Care Time/CCT Total # of Minutes Spent Total Time Spent with Patient: Total time spent is greater than 50% in coordination of care (as documented) at patient's floor/unit and/or counseling patient:
[2019-03-10] MEDS ORDERED: BENZONATATE 100 MG CAPSULE PO ONE (17:06)
[2019-03-10] MEDS ORDERED: CARBOHYDRATES FOR HYPOGLYCEMIA PO PRN (18:33)
[2019-03-10] MEDS ORDERED: GLUCOSE 40% GEL 15 GM TUBE PO PRN (18:33)
[2019-03-10] MEDS ORDERED: MAGNESIUM HYDROXIDE SUSP 30 ML UDC PO PRN (18:33)
[2019-03-10] MEDS ORDERED: SODIUM CHLORIDE 0.9% 1000ML 1,000 ML IV SCH (18:33)
[2019-03-10] MEDS ORDERED: OXYBUTYNIN CHLORIDE XL 5 MG TABCR PO PRN (18:33)
[2019-03-10] MEDS ORDERED: ALUMINUM/MAGNESIUM SUSP 30 ML UDC PO PRN (18:33)
[2019-03-10] MEDS ORDERED: PHARMACY GLYCEMIC MGMT CONSULT PRN (18:33)
[2019-03-10] MEDS ORDERED: POLYETHYLENE (MIRALAX) 17 GM PACK PO PRN (18:33)
[2019-03-10] MEDS ORDERED: DEXTROSE 50% 50 ML SYRINGE IV PRN (18:33)
[2019-03-10] MEDS ORDERED: GLUCOSE 10 TABS/TUBE PO PRN (18:33)
[2019-03-10] MEDS ORDERED: ACETAMINOPHEN 325 MG TAB PO PRN (18:33)
[2019-03-10] MEDS ORDERED: GLUCAGON FOR INJ 1 MG VIAL SQ PRN (18:33)
[2019-03-10 18:59] LABS: Thyroid Stimulating Hormone 1.82 uIu/ml (0.300-4.500)
[2019-03-10 19:17] LABS: Partial Thromboplastin Ratio 0.9; Partial Thromboplastin Time 24.2 Seconds (21.0-31.0)
[2019-03-10] MEDS: ALBUT/IPRATROP 3MG/0.5MG NEB 3 ML VIAL NEB SCH ×2 (19:57→22:32)
[2019-03-10] MEDS ORDERED: AZITHROMYCIN 500 MG in DEXTROSE 5% 250 ML IV ONE (20:00)
[2019-03-10] MEDS: NICOTINE 7 MG/24 HR TDSY TD SCH (20:20)
[2019-03-10] MEDS: HEPARIN SOD 5,000 UNIT/0.5 ML VIAL SQ SCH (20:21)
[2019-03-10] MEDS: TERAZOSIN HCL 1 MG CAP PO SCH (20:22)
[2019-03-10] MEDS: ATORVASTATIN 40 MG TAB PO SCH (20:22)
[2019-03-10] MEDS: BUDESONIDE/FORMOTEROL FUMARATE 160/4.5 60 PUFFS/INHALER INH SCH (20:22)
[2019-03-10] MEDS: methylPREDNISolone 30 MG in SYRINGE 0 ML IV SCH (20:26)
--- NOTE | 2019-03-10 20:26 | Pharmacy Report ---
Glycemic Control Consultation - Date of Service March 10, 2019 - Scope Scope: Glycemic Pharmacist consulted by Dr Rueda on 03/10/19 for glycemic control and to write orders per [facility] inpatient glycemic control protocol - Objective Weight: 197 kg Accuchecks BSG (last 24hrs): 03/10/19 03/10/19 11:55 17:05 Glucose 92 POC Glucose 234 H Laboratory Data (last 24hrs): 03/10/19 11:55 Potassium 4.6 Carbon Dioxide 28 Anion Gap 3.0 Creatinine 1.46 H Est Cr Clr Drug Dosing 32.3 - Recent Pertinent Medications Outpatient Anti-diabetic Regimen: * Lantus 36 units SC HS * Novolog SSI (max 150 units/day) * A1c = 7.7 % (10/06/18) * A1c pending for tomorrow AM Risk Factors for Insulin Resistance: * Steroids: Prednisone 50 mg PO x 1 today @1300, followed by methylprednisolone 30 mg IV BID * Infection: Ceftriaxone and azithromycin for pulmonary infection * Diet: T2DM - Assessment & Plan Assessment & Plan: ASSESSMENT: * GW is a 78 year old female presented to [facility] ED on 03/10 with shortness of breath * Patient currently receiving ceftriaxone and azithromycin IV for treatment of potential pulmonary infection * Patient also ordered ongoing methylprednisolone 30 mg IV BID * BSG in ED of 92 mg/dL and increased to 234 mg/dL this evening * Of note: patient did have an uncovered meal in the ED * SCr of 1.46 mg/dL on admission appears to be at baseline PLAN FOR INPATIENT GLYCEMIC CONTROL: * Basal insulin * Lantus 36 units SC HS (home dose) * Bolus insulin * NovoLog per scale ACHS or Q6hrs while NPO * Goal Range: Low 120 mg/dL - High 150 mg/dL * Correction Factor: 20 mg/dL/unit * Nutritional / Prandial insulin per carb ratio of 1 unit per 6 grams CHO consumed * 00,04 checks with same parameters * Please note that the plan above was derived based on current level of insulin resistance and hospital stress. These recommendations are appropriate for inpatient admission only. Plan of care upon discharge will need to be reassessed to avoid potential outpatient hypo/hyperglycemia. Thank you.
[2019-03-10] MEDS ORDERED: INSULIN GLARGINE SOLOSTAR 100 UNITS/ML 3 ML PEN SQ SCH (21:00)
[2019-03-10] MEDS: INSULIN GLARGINE SOLOSTAR 100 UNITS/ML 3 ML PEN SQ SCH (21:21)
[2019-03-10] MEDS: INSULIN ASPART 100 UNITS/ML 3 ML PEN SC SCH (21:22)
[2019-03-10] MEDS ORDERED: OXYCODONE/ACETAMINOPHEN 5mg/325mg TAB PO PRN (21:49)
[2019-03-10 23:34] LABS: Appearance Urine Clear (Clear); Bilirubin Urine Negative (Negative); Blood Urine Negative (Negative); Color Urine Yellow; Glucose Urine UA 3+ (Negative); Ketones Urine Negative (Negative); Leukocyte Esterase Urine Negative (Negative); Nitrite Urine Negative (Negative); Protein Urine Negative (Negative); Urobilinogen Urine Negative (Negative)
[2019-03-11] MEDS: GUAIFENESIN/DEXTROM SYRUP 200MG/20MG 10ML UDC PO PRN (00:35)
[2019-03-11] MEDS: INSULIN ASPART 100 UNITS/ML 3 ML PEN SC SCH ×6 (00:37→20:34)
[2019-03-11] MEDS: ALBUT/IPRATROP 3MG/0.5MG NEB 3 ML VIAL NEB SCH ×6 (03:11→23:06)
[2019-03-11 04:14] LABS: Hematocrit (blood only) 37.9 % (37-47); Hemoglobin 12.5 g/dL (12.0-16.0); Lymphocytes # (auto) 0.92 K/uL (1.2-3.4); Mean Corpuscular Hemoglobin 33.6 pg (25-34); Mean Corpuscular Volume 101.9 fL (80-100); Mean Platelet Volume 11.7 fL (7.4-10.4); Monocytes # (auto) 0.16 K/uL (0.11-0.59); Monocytes % (auto) 2.1 %; Neutrophils # (auto) 6.56 K/uL (1.4-6.5); Neutrophils % (auto) 85.9 %; Platelet Count 173 K/uL (130-400); RDW Coefficient of Variation 12.7 % (11.5-14.5); RDW Standard Deviation 47.4 fL (36.4-46.3); Red Blood Count 3.72 M/uL (4.2-5.4); White Blood Count 7.64 K/uL (4.8-10.8)
[2019-03-11 04:32] LABS: Albumin Level 3.5 gm/dl (3.4-5.0); BUN Creatinine Ratio 15.3 (10-20); Calcium 8.7 mg/dl (8.5-10.1); Creatinine Clr Calc Pharmacy 24.6 ml/min; Est GFR (African American) 27.9; Potassium 4.1 mmol/L (3.5-5.1)
[2019-03-11 04:35] LABS: Bilirubin,Total 0.5 mg/dl (0.2-1); Globulin 3.4 gm/dl (2.5-4.0); Total Protein 6.9 gm/dl (6.4-8.2)
[2019-03-11] MEDS: LEVOTHYROXINE SODIUM 50 MCG TABLET PO SCH (06:00)
[2019-03-11 07:22] LABS: Estimated Average Glucose 177 mg/dl; Hemoglobin A1C 7.8 % (4.5-5.6)
[2019-03-11] MEDS: BUDESONIDE/FORMOTEROL FUMARATE 160/4.5 60 PUFFS/INHALER INH SCH ×2 (08:27→20:35)
[2019-03-11] MEDS: HEPARIN SOD 5,000 UNIT/0.5 ML VIAL SQ SCH ×2 (08:27→20:45)
[2019-03-11] MEDS: methylPREDNISolone 30 MG in SYRINGE 0 ML IV SCH ×2 (08:27→20:31)
[2019-03-11] MEDS: LOSARTAN POTASSIUM 25 MG TAB PO SCH (08:28)
[2019-03-11] MEDS: CYANOCOBALAMIN 500 MCG TABLET (VITAMIN B-12) PO SCH (08:28)
[2019-03-11] MEDS: NICOTINE 7 MG/24 HR TDSY TD SCH (08:29)
[2019-03-11] MEDS: CHOLECALCIFEROL 1,000 UNITS TAB PO SCH (08:29)
[2019-03-11] MEDS ORDERED: INSULIN GLARGINE SOLOSTAR 100 UNITS/ML 3 ML PEN SC ONE (09:00)
[2019-03-11] MEDS ORDERED: NICOTINE 7 MG/24 HR TDSY TD SCH (09:00)
--- NOTE | 2019-03-11 12:32 | Hospitalist Progress Note ---
Date of Service March 11, 2019 Assessment & Plan (1) COPD exacerbation: Possible COPD vs. reactive airway. Does not have an official COPD diagnosis, but does have long smoking history and daughter reports she often has a slight wheeze. - Continue O2 - Continue azithromycin (stopped ceftriaxone on 03/11 for negative CXR and procalcitonin) - Continue steroids & DuoNebs (2) Pericarditis: Admitting provider had concern for pericarditis due to EKG and patient reporting chest pain. - Today patient reports no chest pain and doesn't recall mentioning chest pain to the admitting provider. She denies any pleuritic pain. - Repeat EKG - Echo pending - Steroids for her breathing could be complicating the pericarditis picture; however, unless echo shows concerning finding will presume her chest tightness was from coughing and EKG represents repolarization changes. If chest pain should recur and sound like pericarditis, would consider treatment. This is complicated by both her CKD and her DM which make NSAIDs and steroids both not an ideal solution. (3) Hypertension: Stable with BP of 145/85 today. - Continue losartan 25 mg p.o. every morning & terazosin 1 mg p.o. nightly. (4) Diabetes mellitus: A1c was 7.8%. Sugars will likely raise with steroids. - Continue Lantus and sliding scale insulin - Pharmacy to control patient's hyperglycemia. (5) CKD (chronic kidney disease), stage III: Baseline Cr ~1.5, eGFR ~35. - Avoid nephrotoxic agents. - Cr now 1.95, maybe due to dehydration. (6) Subclinical hypothyroidism: TSH is 1.82. - Continue home dose of levothyroxine 50 MCG's p.o. every morning. (7) Hyperlipidemia: - Continue atorvastatin 40 mg p.o. nightly. (8) Vitamin D deficiency: - Continue for now vitamin D3 2000 units p.o. every morning. (9) Urge and stress incontinence: Continue home medicine: Oxybutynin chloride 5 mg p.o. every morning as needed. (10) DVT prophylaxis: Heparin 5000 units Q12h Subjective Doing much better today. Reports her shortness of breath has improved. No chest pain today. No pleuritic pain. Otherwise feels well. Reports no fevers/chills, chest pain, shortness of breath, abdominal pain, nausea, or vomiting. Physical Exam Constitutional: WD/WN, vitals as above Eyes: EOM intact bilaterally; no conjunctival abnormality ENMT: external ear and nose normal, oropharynx normal Neck: trachea midline, no thyromegaly normal visual inspection Respiratory: no respiratory distress Auscultation: + wheezes (Minimal, end- expiratory); no diminished lung sounds, no crackles and no rales Cardiovascular: RRR, no murmur, no edema Gastrointestinal (Abdomen): Inspection/Auscultation: abdomen normal to inspection; abdomen not distended Musculoskeletal: no cyanosis or clubbing, extremities motor strength 5/5 Skin: no rashes, warm and dry Neurologic: moves all extremities and awake Psychiatric: Orientation: alert, oriented to person and cooperative Results & Data Vital Signs (Past 12 Hours) Vital Signs Temp Pulse Pulse Resp BP Pulse Ox 03/11/19 11:09 77 16 95 03/11/19 07:16 36.4 C L 76 18 146/86 H 96 03/11/19 07:10 81 16 96 03/11/19 03:13 76 20 94 03/11/19 02:47 36.4 C L 87 24 158/69 H 95 PG Care Time/CCT Total # of Minutes Spent Total Time Spent with Patient: Total time spent is greater than 50% in coordination of care (as documented) at patient's floor/unit and/or counseling patient:
[2019-03-11] MEDS ORDERED: cefTRIAXone SODIUM 2,000 MG in DEXTROSE 5% 50 ML IV SCH (14:00)
--- NOTE | 2019-03-11 14:30 | Pharmacy Report ---
Glycemic Control Progress Note - Date of Service March 11, 2019 - Scope Glycemic Pharmacist consulted for glycemic control to write orders per [facility] inpatient glycemic control protocol. - Objective Accuchecks BSG(last 24 hours):: 03/10/19 03/10/19 03/10/19 17:05 21:08 21:10 Glucose POC Glucose 234 H 357 H* 399 H* 03/11/19 03/11/19 03/11/19 00:22 00:24 03:42 Glucose POC Glucose 346 H* 308 H* 250 H 03/11/19 03/11/19 03/11/19 03:54 07:32 11:43 Glucose 215 H POC Glucose 190 H 236 H HbA1c:: Hemoglobin A1c 7.8 % (4.5-5.6) H 03/11/19 03:54 - Recent Pertinent Medications The patient is currently receiving: * Basal insulin: Lantus 36 units every 24 hours * Correctional Insulin: Novolog Correction per scale ACHS Goal Range: Low 120 mg/dL - High 150 mg/dL Correction Factor: 20 mg/dL/unit * Prandial insulin: Per carb ratio of 1 unit per 6 grams CHO consumed - Outpatient Anti-Diabetic Meds Lantus 36 units in the evening Novolog sliding scale (max 150 units/day) - Assessment & Plan ASSESSMENT: * See progress note from 03/10/19 for more background info, in short: * Pt receiving SQ basal bolus insulin regimen for hyperglycemia secondary to baseline DM (outpatient regimen on hold), steroids (currently receiving 30 mg IV BID), and Zithromax. * Patient is currently receiving an average of 57 units of insulin per day * 36 units of basal insulin * 21 units of prandial/correctional insulin * BSGs ranging 92 - 399 mg/dl over the past 24hrs * Changes needed to insulin regimen: * AM Fasting BSG = 190 mg/dl. This is above goal range for patient based on inpatient targets and co-morbidities. The patient received about 13 units extra overnight. Give additional 10 units of basal insulin. Continue home dose of 36 units. * Post-prandial BSGs were elevated yesterday since patient received steroids with no insulin. Lantus was late being given so higher blood sugars yesterday evening. Tightened CF this morning and then both CF/CR at lunch. Currently patient's blood sugars below 250 mg/dL so hopefully tightened parameters will reduce further. * Total daily dose is currently unknown since patient receiving steroids. PLAN FOR INPATIENT GLYCEMIC CONTROL: * Basal insulin * Lantus 10 units SQ x1 then continue 36 units at bedtime * Bolus insulin * NovoLog per scale ACHS or Q6hrs while NPO * Goal Range: Low 120 mg/dL - High 150 mg/dL * Correction Factor: 15 mg/dL/unit * Nutritional / Prandial insulin per carb ratio of 1 unit per 5 grams CHO consumed * Please note that the plan above was derived based on current level of insulin resistance and hospital stress. These recommendations are appropriate for inpatient admission only. Plan of care upon discharge will need to be reassessed to avoid potential outpatient hypo/hyperglycemia. Thank you.
[2019-03-11] MEDS: AZITHROMYCIN 250 MG TAB PO SCH (17:43)
[2019-03-11] MEDS: INSULIN GLARGINE SOLOSTAR 100 UNITS/ML 3 ML PEN SQ SCH (20:34)
[2019-03-11] MEDS: ATORVASTATIN 40 MG TAB PO SCH (20:43)
[2019-03-11] MEDS: TERAZOSIN HCL 1 MG CAP PO SCH (20:43)
[2019-03-12] MEDS: INSULIN ASPART 100 UNITS/ML 3 ML PEN SC SCH ×6 (00:12→21:18)
[2019-03-12] MEDS: ALBUT/IPRATROP 3MG/0.5MG NEB 3 ML VIAL NEB SCH ×3 (03:03→11:51)
[2019-03-12] MEDS: LEVOTHYROXINE SODIUM 50 MCG TABLET PO SCH (05:04)
[2019-03-12] MEDS: GUAIFENESIN/DEXTROM SYRUP 200MG/20MG 10ML UDC PO PRN ×2 (05:47→22:49)
[2019-03-12 07:22] LABS: Hematocrit (blood only) 37.2 % (37-47); Hemoglobin 12.2 g/dL (12.0-16.0); Mean Corpuscular Hemoglobin 33.4 pg (25-34); Mean Corpuscular Hgb Conc 32.8 g/dL (32-36); Mean Corpuscular Volume 101.9 fL (80-100); Mean Platelet Volume 11.9 fL (7.4-10.4); Platelet Count 189 K/uL (130-400); RDW Coefficient of Variation 13.1 % (11.5-14.5); RDW Standard Deviation 49.4 fL (36.4-46.3); Red Blood Count 3.65 M/uL (4.2-5.4); White Blood Count 21.45 K/uL (4.8-10.8)
[2019-03-12 07:42] LABS: Basophils # (auto) 0.01 K/uL (0-0.2); Immature Granulocytes # (auto) 0.07 K/uL (0.00-0.02); Immature Granulocytes % (auto) 0.3 %; Lymphocytes # (auto) 0.69 K/uL (1.2-3.4); Lymphocytes % (auto) 3.2 %; Monocytes # (auto) 0.61 K/uL (0.11-0.59); Monocytes % (auto) 2.8 %; Neutrophils # (auto) 20.07 K/uL (1.4-6.5); Neutrophils % (auto) 93.7 %
[2019-03-12 07:50] LABS: Albumin Globulin Ratio 1.1 (0.9-2); Albumin Level 3.4 gm/dl (3.4-5.0); BUN Creatinine Ratio 21.6 (10-20); Bilirubin,Total 0.4 mg/dl (0.2-1); Calcium 9.6 mg/dl (8.5-10.1); Creatinine Clr Calc Pharmacy 28.4 ml/min; Est GFR (African American) 33.1; Est GFR (Non-African American) 28.6; Globulin 3.2 gm/dl (2.5-4.0); Potassium 4.9 mmol/L (3.5-5.1); Total Protein 6.6 gm/dl (6.4-8.2)
[2019-03-12] MEDS ORDERED: INSULIN GLARGINE SOLOSTAR 100 UNITS/ML 3 ML PEN SC ONE (09:00)
[2019-03-12] MEDS: BUDESONIDE/FORMOTEROL FUMARATE 160/4.5 60 PUFFS/INHALER INH SCH ×2 (09:17→21:11)
[2019-03-12] MEDS: methylPREDNISolone 30 MG in SYRINGE 0 ML IV SCH ×2 (09:17→21:11)
[2019-03-12] MEDS: LOSARTAN POTASSIUM 25 MG TAB PO SCH (09:23)
[2019-03-12] MEDS: CYANOCOBALAMIN 500 MCG TABLET (VITAMIN B-12) PO SCH (09:24)
[2019-03-12] MEDS: CHOLECALCIFEROL 1,000 UNITS TAB PO SCH (09:24)
[2019-03-12] MEDS: NICOTINE 7 MG/24 HR TDSY TD SCH (09:25)
[2019-03-12] MEDS: HEPARIN SOD 5,000 UNIT/0.5 ML VIAL SQ SCH ×2 (09:31→21:12)
[2019-03-12] MEDS ORDERED: COUGH DROP (SUGAR FREE) LOZ 24 LOZ/1 BOX BUCCAL ONE (09:34)
[2019-03-12] MEDS ORDERED: ALBUTEROL HFA 8 GM INHALER INH PRN (11:00)
[2019-03-12] MEDS ORDERED: GUAIFENESIN/CODEINE 100MG/10MG 5ML UDC PO PRN (11:00)
[2019-03-12] MEDS ORDERED: ALBUT/IPRATROP 3MG/0.5MG NEB 3 ML VIAL NEB PRN (11:01)
--- NOTE | 2019-03-12 11:13 | Pharmacy Report ---
Glycemic Control Progress Note - Date of Service March 12, 2019 - Scope Glycemic Pharmacist consulted for glycemic control to write orders per [facility] inpatient glycemic control protocol. - Objective Accuchecks BSG(last 24 hours):: 03/11/19 03/11/19 03/11/19 11:43 16:12 20:08 Glucose POC Glucose 236 H 205 H 197 H 03/11/19 03/12/19 03/12/19 23:46 04:20 06:43 Glucose 255 H POC Glucose 92 156 H 03/12/19 07:45 Glucose POC Glucose 256 H HbA1c:: Hemoglobin A1c 7.8 % (4.5-5.6) H 03/11/19 03:54 - Recent Pertinent Medications The patient is currently receiving: * Basal insulin: Lantus 10 units in the morning and 36 units at bedtime * Correctional Insulin: Novolog Correction per scale ACHS Goal Range: Low 120 mg/dL - High 150 mg/dL Correction Factor: 15 mg/dL/unit * Prandial insulin: Per carb ratio of 1 unit per 5 grams CHO consumed - Outpatient Anti-Diabetic Meds Lantus 36 units at bedtime Novolog up to 150 units/day - Assessment & Plan ASSESSMENT: * See progress note from 03/11/19 for more background info, in short: * Pt receiving SQ basal bolus insulin regimen for hyperglycemia secondary to baseline DM (outpatient regimen on hold),stress/infection (on Azithromycin), and Solu-Medrol 30 mg IV BID. * Patient is currently receiving an average of 94 units of insulin per day * 46 units of basal insulin * 48 units of prandial/correctional insulin * BSGs ranging 92 - 236 mg/dl over the past 24hrs (all but one above 180 mg/dL) * Changes needed to insulin regimen: * AM Fasting BSG = 256 mg/dl. This is above goal range for patient based on inpatient targets and co-morbidities. The patient only received one extra unit overnight; therefore 46 units is most likely appropriate. Continue this regimen. * Post-prandial BSGs are elevated but did trend down yesterday. Tighten CF for now. * Total daily dose = ~110-120 units while on steroids. Monitor closely as will require dose reduction once steroids stopped. PLAN FOR INPATIENT GLYCEMIC CONTROL: * Continuing Lantus 10 units in AM and 36 units in PM SQ * TIGHTENING correction factor of 12 mg/dl/unit * Continuing carb ratio of 1 unit per 5 grams CHO consumed * Continuing goal range of Low 120 mg/dL - High 150 mg/dL RECOMMENDATIONS FOR DISCHARGE: * Patient's HbA1C is relatively controlled for her age and co-morbidities. It is also stable from September. * May want to scheduled Novolog doses with meals plus a sliding scale to ensure slightly tighter glycemic control. * More appropriate recommendations will be able to be made once steroids are cut. Thank you.
--- NOTE | 2019-03-12 11:13 | Hospitalist Progress Note ---
Date of Service March 12, 2019 Assessment & Plan (1) COPD exacerbation: Possible COPD vs. reactive airway. Does not have an official COPD diagnosis, but does have long smoking history and daughter reports she often has a slight wheeze. Still smokes a few cigarettes/day. Flu negative on admission. - Continue O2 - Continue azithromycin (stopped ceftriaxone on 03/11 for negative CXR and procalcitonin) - Continue steroids & DuoNebs PRN - Nicotine patch - On 03/12, cough is worse. Shortness of breath similar or maybe mildly worse. She feels the DuoNebs actually make it worse and has some mild sore throat, so maybe just throat irritation. - Added cough drops, cough suppressant, made DuoNebs PRN, and will get repeat CXR to ensure no pneumonia as we did narrow abx yesterday. WBC elevated, but on steroids, so unclear clinical significance. (2) Pericarditis: Admitting provider had concern for pericarditis due to EKG and patient reporting chest pain. She denies any pleuritic pain to me. - Repeat EKG - Echo pending - Done, but not read yet. - Steroids for her breathing could be complicating the pericarditis picture; however, unless echo shows concerning finding will presume her chest tightness was from coughing and EKG represents repolarization changes. If chest pain should recur and sound like pericarditis, would consider treatment. This is complicated by both her CKD and her DM which make NSAIDs and steroids both not an ideal solution. (3) Hypertension: Stable with BP of 150/75 today. - Continue losartan 25 mg p.o. every morning & terazosin 1 mg p.o. nightly. (4) Diabetes mellitus: A1c was 7.8%. Sugars will likely raise with steroids. - Continue Lantus and sliding scale insulin - Pharmacy to control patient's hyperglycemia. - Sugars higher today in the 200s. (5) CKD (chronic kidney disease), stage III: Baseline Cr ~1.5, eGFR ~35. - Avoid nephrotoxic agents. - Cr now 1.7, maybe due to dehydration. Monitor. (6) Subclinical hypothyroidism: TSH is 1.82. - Continue home dose of levothyroxine 50 MCG's p.o. every morning. (7) Hyperlipidemia: - Continue atorvastatin 40 mg p.o. nightly. (8) Vitamin D deficiency: - Continue for now vitamin D3 2000 units p.o. every morning. (9) Urge and stress incontinence: Continue home medicine: Oxybutynin chloride 5 mg p.o. every morning as needed. (10) DVT prophylaxis: Heparin 5000 units Q12h Subjective Coughing more today with a bit more shortness of breath. Also has some chest tightness from the coughing. Reports no fevers/chills, abdominal pain, nausea, or vomiting. Physical Exam Constitutional: WD/WN, vitals as above Eyes: EOM intact bilaterally; no conjunctival abnormality ENMT: external ear and nose normal, oropharynx normal Neck: trachea midline, no thyromegaly normal visual inspection Respiratory: + cough; no respiratory distress Auscultation: + wheezes (Minimal, end-expiratory); no diminished lung sounds, no crackles and no rales Cardiovascular: RRR, no murmur, no edema Gastrointestinal (Abdomen): Inspection/Auscultation: abdomen normal to inspection; abdomen not distended Musculoskeletal: no cyanosis or clubbing, extremities motor strength 5/5 Skin: no rashes, warm and dry Neurologic: moves all extremities and awake Psychiatric: Orientation: alert, oriented to person and cooperative Results & Data Vital Signs (Past 12 Hours) Vital Signs Temp Pulse Resp BP Pulse Ox 03/12/19 07:14 36.5 C 96 H 18 151/75 H 91 03/12/19 07:10 82 16 91 03/12/19 03:14 36.6 C 83 18 141/72 H 91 03/12/19 03:04 78 16 93 03/11/19 23:32 37.1 C 81 18 136/70 92 03/11/19 23:08 70 18 90 PG Care Time/CCT Total # of Minutes Spent Total Time Spent with Patient: Total time spent is greater than 50% in coordination of care (as documented) at patient's floor/unit and/or counseling patient:
--- NOTE | 2019-03-12 12:05 | XRay Report ---
XR chest 2V PA/lateral CLINICAL HISTORY: Worsening cough and shortness of breath COMPARISON STUDY: No previous studies for comparison. FINDINGS: The heart is normal in size. There is no lobar consolidation. There are no pleural effusion s. There are nonspecific substernal opacities in the lateral view statistically atelectatic.[ IMPRESSION: 1. Nonspecific substernal opacity statistically atelectatic 2. No evidence of lobar consolidation. No evidence of failure Electronically signed by: Morales Biswas M.D. 03/12/2019 12:04 PM
[2019-03-12] MEDS: BENZONATATE 100 MG CAPSULE PO PRN ×2 (12:43→21:13)
[2019-03-12] MEDS: AZITHROMYCIN 250 MG TAB PO SCH (17:48)
[2019-03-12] MEDS: INSULIN GLARGINE SOLOSTAR 100 UNITS/ML 3 ML PEN SQ SCH (21:17)
[2019-03-12] MEDS: ATORVASTATIN 40 MG TAB PO SCH (21:19)
[2019-03-12] MEDS: TERAZOSIN HCL 1 MG CAP PO SCH (21:19)
[2019-03-13] MEDS: LEVOTHYROXINE SODIUM 50 MCG TABLET PO SCH (06:04)
[2019-03-13 07:46] LABS: Basophils # (auto) 0.01 K/uL (0-0.2); Hematocrit (blood only) 39.9 % (37-47); Immature Granulocytes # (auto) 0.16 K/uL (0.00-0.02); Immature Granulocytes % (auto) 0.8 %; Lymphocytes # (auto) 0.91 K/uL (1.2-3.4); Lymphocytes % (auto) 4.4 %; Mean Corpuscular Hemoglobin 33.4 pg (25-34); Mean Corpuscular Hgb Conc 32.6 g/dL (32-36); Mean Corpuscular Volume 102.6 fL (80-100); Mean Platelet Volume 11.8 fL (7.4-10.4); Monocytes # (auto) 0.66 K/uL (0.11-0.59); Monocytes % (auto) 3.2 %; Neutrophils # (auto) 18.75 K/uL (1.4-6.5); Neutrophils % (auto) 91.6 %; Platelet Count 202 K/uL (130-400); RDW Coefficient of Variation 13.5 % (11.5-14.5); RDW Standard Deviation 50.4 fL (36.4-46.3); Red Blood Count 3.89 M/uL (4.2-5.4); White Blood Count 20.49 K/uL (4.8-10.8)
[2019-03-13] MEDS: HEPARIN SOD 5,000 UNIT/0.5 ML VIAL SQ SCH ×2 (08:18→21:13)
[2019-03-13] MEDS: BUDESONIDE/FORMOTEROL FUMARATE 160/4.5 60 PUFFS/INHALER INH SCH ×2 (08:19→21:10)
[2019-03-13] MEDS: NICOTINE 7 MG/24 HR TDSY TD SCH (08:19)
[2019-03-13] MEDS: methylPREDNISolone 30 MG in SYRINGE 0 ML IV SCH ×3 (08:19→21:10)
[2019-03-13 08:20] LABS: Albumin Level 3.6 gm/dl (3.4-5.0); BUN Creatinine Ratio 22.9 (10-20); Calcium 9.6 mg/dl (8.5-10.1); Est GFR (African American) 28.4; Est GFR (Non-African American) 24.5; Potassium 4.9 mmol/L (3.5-5.1)
[2019-03-13] MEDS: CYANOCOBALAMIN 500 MCG TABLET (VITAMIN B-12) PO SCH (08:20)
[2019-03-13 08:21] LABS: RBC Morphology Unremarkable
[2019-03-13] MEDS: CHOLECALCIFEROL 1,000 UNITS TAB PO SCH (08:21)
[2019-03-13 08:22] LABS: Albumin Globulin Ratio 1.1 (0.9-2); Bilirubin,Total 0.5 mg/dl (0.2-1); Globulin 3.2 gm/dl (2.5-4.0); Total Protein 6.8 gm/dl (6.4-8.2)
[2019-03-13] MEDS: INSULIN ASPART 100 UNITS/ML 3 ML PEN SC SCH ×4 (08:26→21:15)
[2019-03-13] MEDS ORDERED: INSULIN GLARGINE SOLOSTAR 100 UNITS/ML 3 ML PEN SC ONE (09:00)
--- NOTE | 2019-03-13 09:30 | Hospitalist Progress Note ---
Date of Service March 13, 2019 Assessment & Plan (1) COPD exacerbation: Patient has ongoing dry cough which is quite severe despite medication. She remains on IV Solu-Medrol which we will continue for another 24 hours. Continue Tessalon Perles. Considering hypoxia at rest, will check a 6-minute walk test prior to discharge as I suspect the patient will require home oxygen, at least in the short-term. Continue azithromycin along with Symbicort twice daily which should be continued on discharge. (2) Pericarditis: Patient no longer has chest pain. I did review the echo report, there is no effusion or other findings consistent with pericarditis. (3) Hypertension: Stable with BP of 150/75 today. - Continue losartan 25 mg p.o. every morning & terazosin 1 mg p.o. nightly. (4) Diabetes mellitus: A1c was 7.8%. Sugars will likely raise with steroids. - Continue Lantus and sliding scale insulin - Pharmacy to control patient's hyperglycemia. - Sugars higher today in the 200s. (5) CKD (chronic kidney disease), stage III: Baseline Cr ~1.5, eGFR ~35. - Avoid nephrotoxic agents. - Cr now 1.9, trending up. Will hold losartan for now and continue to monitor. Blood pressure is acceptable, consider alternative agent if starts to rise. (6) Subclinical hypothyroidism: TSH is 1.82. - Continue home dose of levothyroxine 50 MCG's p.o. every morning. (7) Hyperlipidemia: - Continue atorvastatin 40 mg p.o. nightly. (8) Vitamin D deficiency: - Continue for now vitamin D3 2000 units p.o. every morning. (9) Urge and stress incontinence: Continue home medicine: Oxybutynin chloride 5 mg p.o. every morning as needed. (10) DVT prophylaxis: Heparin 5000 units Q12h Subjective Patient seen and examined. Continues to have severe barking cough. Patient tells me there is minimal sputum production and is mostly dry. Has been having some relief with Tessalon Perles. O2 sat noted to be only 90-91% on room air at rest. Physical Exam Physical Exam: Gen: AAOx3, NAD HEENT: neck supple, no JVD. MMM. Heart: RR, no murmurs Lungs: Diminished in all antony, no overt wheeze or rhonchi. Somewhat limited by coughing. Abd: soft, nontender, nondistended. Normal BS Neuro: awake, alert. Nonfocal Psych: appropriate mood and affect Ext: No clubbing, cyanosis, edema Results & Data Vital Signs (Past 12 Hours) Vital Signs Temp Pulse Pulse Resp BP BP Pulse Ox 03/13/19 07:23 36.6 C 88 20 135/80 86 L 03/13/19 03:05 36.8 C 75 18 169/82 H 91 03/13/19 00:39 81 03/12/19 23:36 36.7 C 83 18 146/76 H 90 Diagnostic Findings XR chest 2V PA/lateral CLINICAL HISTORY: Worsening cough and shortness of breath COMPARISON STUDY: No previous studies for comparison. FINDINGS: The heart is normal in size. There is no lobar consolidation. There are no pleural effusions. There are nonspecific substernal opacities in the lateral view statistically atelectatic.[ IMPRESSION: 1. Nonspecific substernal opacity statistically atelectatic 2. No evidence of lobar consolidation. No evidence of failure PG Care Time/CCT Total # of Minutes Spent Total Time Spent with Patient: Total time spent is greater than 50% in coordination of care (as documented) at patient's floor/unit and/or counseling patient:
[2019-03-13] MEDS: LOSARTAN POTASSIUM 25 MG TAB PO SCH ×2 (10:08→13:42)
[2019-03-13] MEDS: AZITHROMYCIN 250 MG TAB PO SCH (17:14)
[2019-03-13] MEDS: INSULIN GLARGINE SOLOSTAR 100 UNITS/ML 3 ML PEN SQ SCH (21:11)
[2019-03-13] MEDS: ATORVASTATIN 40 MG TAB PO SCH (21:13)
[2019-03-13] MEDS: TERAZOSIN HCL 1 MG CAP PO SCH (21:14)
[2019-03-13] MEDS: GUAIFENESIN/DEXTROM SYRUP 200MG/20MG 10ML UDC PO PRN (21:21)
[2019-03-14] MEDS: LEVOTHYROXINE SODIUM 50 MCG TABLET PO SCH (06:04)
[2019-03-14 07:45] LABS: Basophils # (auto) 0.01 K/uL (0-0.2); Basophils % (auto) 0.1 %; Hemoglobin 13.3 g/dL (12.0-16.0); Immature Granulocytes # (auto) 0.21 K/uL (0.00-0.02); Immature Granulocytes % (auto) 1.2 %; Lymphocytes # (auto) 1.26 K/uL (1.2-3.4); Lymphocytes % (auto) 7.5 %; Mean Corpuscular Hemoglobin 33.7 pg (25-34); Mean Corpuscular Hgb Conc 33.3 g/dL (32-36); Mean Corpuscular Volume 101.3 fL (80-100); Mean Platelet Volume 11.3 fL (7.4-10.4); Monocytes # (auto) 0.78 K/uL (0.11-0.59); Monocytes % (auto) 4.6 %; Neutrophils # (auto) 14.56 K/uL (1.4-6.5); Neutrophils % (auto) 86.6 %; Nucleated RBC # (auto) 0.02 K/uL (0-0); Nucleated RBC % (auto) 0.1 %; Platelet Count 183 K/uL (130-400); RDW Coefficient of Variation 13.3 % (11.5-14.5); RDW Standard Deviation 49.5 fL (36.4-46.3); Red Blood Count 3.95 M/uL (4.2-5.4); White Blood Count 16.82 K/uL (4.8-10.8)
[2019-03-14 08:20] LABS: Albumin Level 3.5 gm/dl (3.4-5.0); BUN Creatinine Ratio 30.2 (10-20); Calcium 9.5 mg/dl (8.5-10.1); Creatinine Clr Calc Pharmacy 29.4 ml/min; Est GFR (African American) 34.6; Est GFR (Non-African American) 29.9; Potassium 5.3 mmol/L (3.5-5.1)
[2019-03-14 08:22] LABS: Albumin Globulin Ratio 1.1 (0.9-2); Bilirubin,Total 0.5 mg/dl (0.2-1); Globulin 3.2 gm/dl (2.5-4.0); Total Protein 6.7 gm/dl (6.4-8.2)
[2019-03-14] MEDS: CHOLECALCIFEROL 1,000 UNITS TAB PO SCH (08:26)
[2019-03-14] MEDS: methylPREDNISolone 30 MG in SYRINGE 0 ML IV SCH (08:26)
[2019-03-14] MEDS: NICOTINE 7 MG/24 HR TDSY TD SCH (08:26)
[2019-03-14] MEDS: CYANOCOBALAMIN 500 MCG TABLET (VITAMIN B-12) PO SCH (08:27)
[2019-03-14] MEDS: LOSARTAN POTASSIUM 25 MG TAB PO SCH (08:27)
[2019-03-14] MEDS: HEPARIN SOD 5,000 UNIT/0.5 ML VIAL SQ SCH (08:27)
[2019-03-14] MEDS: BUDESONIDE/FORMOTEROL FUMARATE 160/4.5 60 PUFFS/INHALER INH SCH (08:28)
[2019-03-14] MEDS: INSULIN ASPART 100 UNITS/ML 3 ML PEN SC SCH ×2 (08:28→12:11)
[2019-03-14] MEDS: GUAIFENESIN/DEXTROM SYRUP 200MG/20MG 10ML UDC PO PRN (08:41)
[2019-03-14] MEDS ORDERED: INSULIN GLARGINE SOLOSTAR 100 UNITS/ML 3 ML PEN SC SCH (09:00)
--- NOTE | 2019-03-14 09:33 | Discharge Summary ---
Date of Service March 14, 2019 Admission HPI Per Admitting Provider Patient is a 78 years old female with past medical history of diabetes mellitus type 2, hypertension, hyperlipidemia, nephrolithiasis, Raynaud's disease, PA-C, pseudogout, spinal stenosis, subclinical hypothyroidism, urgent stress incontinence, degenerative joint disease, who presents to the emergency room with runny nose sore throat ear pain and worsening shortness of breath beginning this morning. Patient reports having cold with a cough runny nose sore throat and ear pain for the past 2 weeks. Patient still smokes approximately 1 to 2 cigarettes/day. Patient denies any other exacerbating or remitting factors. Patient also denies a sick contact. Patient does not use oxygen at home, but in the emergency room she needed to be 9 3 L to oxygenate above 92%. Labs are reviewed: Which shows WBC is 8.32, hemoglobin 13.6, hematocrit 41.1, platelets 164. PT 10.1, INR 1, APTT 22.9, sodium 141, potassium 4.6, chloride 110, BUN 22, creatinine 1.46, GFR of 34.1, elevated blood glucose of 234, procalcitonin 0.05, BNP 570. Influenza A&B negative. Chest x-ray no acute cardiopulmonary findings, lungs are clear, there is no pneumothorax or pleural effusion there is no evidence of pulmonary edema. Decision was made to admit patient at [facility] with telemetry for further evaluation and treatment of acute respiratory failure, hypoxia, and acute COPD exacerbation. Admission Exam Per Admitting Provider Constitutional: WD/WN, vitals as above well developed, + ill appearing and + obese Eyes: PERRL, conjunctivae normal, anicteric sclerae ENMT: external ear and nose normal, oropharynx normal Neck: trachea midline, no thyromegaly Respiratory: Auscultation: + wheezes Cardiovascular: Heart Sounds: normal S1 and normal S2 Vessels: dorsalis pedis pulses present Gastrointestinal (Abdomen): normal bowel sounds, soft, nontender, no hepatosplenomegaly Musculoskeletal: no cyanosis or clubbing, extremities motor strength 5/5 Skin: no rashes, warm and dry Neurologic: patellar DTR's 2+ bilat, sensation intact Psychiatric: A+Ox3, euthymic affect Lymphatic: no cervical or axillary lymphadenopathy Principal Diagnosis 1. COPD exacerbation 2. Hypertension 3. Noncardiac chest pain, pericarditis ruled out 4. Uncontrolled type 2 diabetes mellitus, A1c 7.8 5. Chronic kidney disease, stage III 6. Hyperlipidemia 7. Subclinical hypothyroidism on treatment 8. Urge/stress incontinence Discharge Exam Gen: AAOx3, NAD, cough improved from previous evaluation HEENT: neck supple, no JVD. MMM. Heart: RR, no murmurs Lungs: Diminished in all antony without wheeze Abd: soft, nontender, nondistended. Normal BS Neuro: awake, alert. Nonfocal Psych: appropriate mood and affect Ext: No clubbing, cyanosis, edema Discharge Data Allergies Allergy/AdvReac Type Severity Reaction Status Date / Time levofloxacin Allergy Unknown ?? Verified 03/10/19 14:[address] LAI moxifloxacin AdvReac Mild DIARRHEA Verified 03/10/19 14:10 Consultations 03/10/19 13:43 ED Decision to Admit Stat Hospital Course (1) COPD exacerbation: Patient finished a long course of Solu-Medrol, she has no wheeze today. She was treated with Zithromax, duo nebs, outpatient Symbicort. Patient did have a 6-minute walk test was found not to be hypoxic, even with activity. She does sat around 90-92%. She has ongoing cough. Patient was very insistent being discharged today, will convert over to a long prednisone taper. Patient is also requesting guaifenesin syrup with codeine which was sent to her pharmacy. Patient will require follow-up with her primary care physician within the next week. Patient was also told that if her cough continues or she has worsening shortness of breath that she will need to return to the emergency room for further evaluation. (2) Pericarditis: Patient no longer has chest pain. I did review the echo report, there is no effusion or other findings consistent with pericarditis. (3) Hypertension: Patient's blood pressure was somewhat elevated today. I did discontinue losartan secondary to her worsening renal function with a creatinine 1.9. She did improve to 1.63. Patient will continue her other oral medications for hypertension. Consideration to restarting losartan near future once her labs have been rechecked. Patient is to follow her blood pressure at home and with her primary care physician. (4) Diabetes mellitus: A1c was 7.8%. Sugars will likely raise with steroids. - Continue Lantus and sliding scale insulin - Pharmacy to control patient's hyperglycemia. - Sugars higher today in the 200s. (5) CKD (chronic kidney disease), stage III: Baseline Cr ~1.5, eGFR ~35. - Avoid nephrotoxic agents. - Cr now improved, consider restarting losartan as an outpatient depending on course. (6) Subclinical hypothyroidism: TSH is 1.82. - Continue home dose of levothyroxine 50 MCG's p.o. every morning. (7) Hyperlipidemia: - Continue atorvastatin 40 mg p.o. nightly. (8) Vitamin D deficiency: - Continue for now vitamin D3 2000 units p.o. every morning. (9) Urge and stress incontinence: Continue home medicine: Oxybutynin chloride 5 mg p.o. every morning as needed. (10) DVT prophylaxis: Heparin 5000 units Q12h Total Time Total Time Spent Total Time Spent (In Minutes): Time preparing discharge in excess of 30 minutes. Total Time Includes: Examination of the Patient, Discharge Planning and Medication Reconciliation Discharge Plan Discharge Items Patient Disposition: Home - Home Health Services Reason For Visit: RESPIRATORY FAILURE,HYPOXIA,AC COPD EXACERBATION Discharge Diagnosis: 1. COPD exacerbation 2. Hypertension 3. Noncardiac chest pain, pericarditis ruled out 4. Uncontrolled type 2 diabetes mellitus, A1c 7.8 5. Chronic kidney disease, stage III 6. Hyperlipidemia 7. Subclinical hypothyroidism on treatment 8. Urge/stress incontinence Activity: Resume your previous activity Lifting: Gradually increase as tolerated Weightbearing: Full weightbearing Non-emergency contact: Primary Care Provider Call non-emergency contact if: your symptoms worsen and you have a fever Follow-up/Referrals: Catarina Chand DO [Primary Care Provider] - Diet: Carb Consistent or DM2 Addtl Attending Provider Instructions: Have your lab work repeated including renal function within a week. Pending Studies at Discharge: No Stand-Alone Forms: [facility], Smoking Cessation Medications and DC Order Prescriptions: New azithromycin [Zithromax] 250 mg Tablet 250 mg PO DAILY@1700 Qty: 4 RF: 0 albuterol sulfate [Ventolin HFA] 90 mcg/actuation Hfa Aerosol Inhaler 2 puff inhalation Q6H PRN (Reason: bronchospasm) 30 Days Qty: 1 RF: 0 Symbicort 160-4.5 mcg/actuation Hfa Aerosol Inhaler 2 puff inhalation BID 30 Days Qty: 1 RF: 0 prednisone 10 mg tablets,dose pack See Rx Instructions .ROUTE .COMPLEX Qty: 63 RF: 0 codeine-guaifenesin [Guaifenesin AC] 10-100 mg/5 mL liquid 5 ml PO Q6H PRN (Reason: cold symptoms) Qty: 120 RF: 0 Continued atorvastatin 40 mg tablet 40 mg PO HS Qty: 90 RF: 0 insulin aspart U-100 100 unit/mL (3 mL) insulin pen See Patient Comments subcut .COMPLEX Qty: 15 RF: 0 cholecalciferol (vitamin D3) [Vitamin D3] 25 mcg (1,000 unit) Tablet 2,000 unit PO QAM RF: 0 cyanocobalamin (vitamin B-12) 1,000 mcg tablet extended release 1,000 mcg PO QAM RF: 0 terazosin 1 mg capsule 1 mg PO HS RF: 0 levothyroxine 50 mcg tablet 50 mcg PO QAM RF: 0 losartan 25 mg tablet 25 mg PO QAM RF: 0 oxybutynin chloride 5 mg tablet extended release 24hr 5 mg PO QAM PRN (Reason: OVERACTIVE BLADDER) RF: 0 insulin glargine 100 unit/mL (3 mL) insulin pen 36 unit subcut HS RF: 0 Admission Data Admit Date/Time: 03/10/19 15:34 Attending Provider: Rafael Bryson Admit Provider: Clari Rueda Primary Care Provider: Catarina Chand Other Providers: Jairon Luis
== END 2019-03-14 14:06 | disposition home health service (06) | DRG 189 ==
LOC: ED 11:29 → 2N 15:34 → SUATTDRO 15:34 → 2N 17:00